=== PATIENT | female | born 1965 | race Caucasian/White ===

== ENCOUNTER 2020-04-17 16:20 | Inpatient (IN) ==
--- NOTE | 2020-04-17 17:05 | DR.NAUSEAF ---
HPI Time Seen Time Seen by Provider: 04/17/20 17:01 Primary Care Physician Primary Care Physician: SIGIFREDO ESTRADA HPI Comment HPI Comment: PATIENT IS 54YR OLD FEMELAE IN ER WITH NAUSEA, VOMITING AND ABDOMINAL PAIN SINCE FRIDAY. SEEN IN THIS ER YESTERDAY. HER SYMPTOMS ARE GETTING WORSE. NO FEVER OR DYSURIA. PATIENT HAVING SHARP CRAPING PAIN, 10.10 RADIATING TO THE BACK. NOT HOLDING DOWN FLUID OR MEDICATIONS. WEAK AND TIRED. Complaints Chief Complaint Doctors Comments: ABDOMINAL PAIN WITH NAUSEA AND VOMITING TIMES 2 DAYS. Chief Complaint:: PT C/O NAUSEA AND VOMITING AND CONSTANT ABDOMINAL PAIN SINCE FRIDAY. PT WAS SEEN IN ER LAST NIGHT. SPOKE WITH PCP TODAY WHO WANTED HER TO COME BACK FOR CT SCAN COVID-19 Coronavirus risk:travel/contact w/high risk person: No Has patient experienced Coronavirus symptoms: No Reviewed Nurses Notes Reviewed: Yes Source History Provided: Patient Mode of Arrival Mode of Arrival: Ambulatory Timing Onset of Chief Complaint: 04/17/20 Context Onset: Spontaneous Recent: None : No History of: None Quality Quality: Food Particles Associated Signs and Symptoms Abdominal Pain Quality: Cramping and Sharp Abdominal Pain Location: Diffuse Symptoms: Abdominal Pain PMH PMH Past Medical History: Yes Past Medical History: GERD and Hypertension Past Surgical History: Yes Surgical History: Cholecystectomy and Hysterectomy Family History History of Family Medical Conditions: Yes Family Medical History: Diabetes Mellitus Social History Does patient currently use any type of tobacco product: Yes Have you used tobacco products in the last 12 months: Yes Type of Tobacco Use: None Does any household member use tobacco: No Alcohol Use: None Do you use any recreational Drugs:: No Lives With: Alone Lives Where: Home Travel Risk Coronavirus risk:travel/contact w/high risk person: No Has patient experienced Coronavirus symptoms: No Infectious screening In the last 2 months have you had wt loss of >10#?: NO Have you had fever, night sweats or hemotysis?: No Have you traveled outside the country in the last 6 months?: No Isolation: Standard ROS Review of Systems Constitutional: See HPI, Weakness and Fatigue; negative Fever Eyes: No Symptoms Reported and See HPI ENTM: No Symptoms Reported and See HPI Respiratoy: No Symptoms Reported and See HPI; negative Moist Cough, Short of Breath and Wheezing Cardiovascular: No Symptoms Reported and See HPI; negative Chest Pain Gastrointestinal/Abdominal: See HPI, Abdominal Pain, Nausea and Vomiting Genitourinary: No Symptoms Reported and See HPI; negative Dysuria, Frequency and Hematuria Neurological: See HPI and Weakness; negative Headache and Dizziness Musculoskeletal: No Symptoms Reported and See HPI; negative Back Pain Integumentary: No Symptoms Reported and See HPI; negative Change in Color, Rash and Juandice Hematologic/Lymphatic: No Symptoms Reported and See HPI Endocrine: No Symptoms Reported and See HPI; negative Increased Thirst and Increased Urine Psychiatric: No Symptoms Reported and See HPI All Other Systems: Reviewed and Negative PE Vital Signs Vitals: Temperature 97.8 F Pulse Rate [Left Brachial] 78 Pulse Rate 79 Respiratory Rate 20 Blood Pressure [Left Arm] 156/91 Blood Pressure 121/78 O2 Sat by Pulse Oximetry 99 General Limitations: No Limitations General Appearance: Alert and In No Apparent Distress Head Head Exam: Normal Inspection Eyes Eye exam: Normal Appearance and PERRL; negative Scleral Icterus and Conjunctival Injection ENT ENT Exam: Normal Exam; negative Normal Oropharynx, Normal External Ear Exam and TM's Normal Bilaterally Neck Neck Exam: Normal Inspection and Trachea Midline; negative Tenderness and Lymphadenopathy Chest Chest Inspection: Normal Inspection and Symmetric Chest Wall Rise; negative Tenderness Respiratory Respiratory Exam: Normal Lung Sounds Bilat; negative Accessory Muscle Use, Chest Wall Tenderness and Respiratory Distress Respiratory Exam: Bilateral: Clear to Auscultation Cardiovascular Cardiovascular Exam: Regular Rate, Normal Rhythm and Normal Heart Sounds; negative Systolic Murmur and Diastolic Murmur Abdominal Exam Abdominal Exam: Normal Bowel Sounds, Soft and Tenderness Abdominal Tenderness: Moderate Rectal Rectal Exam: Deferred External Exam: Female: Deferred : Speculum Exam (Female): Deferred : Bimanual Exam (female): Deferred Extremities Extremities Exam: Normal Inspection Back Back Exam: Normal Inspection Neurologic Neurological Exam: Alert, Oriented X3 and CN II-XII Intact; negative Motor Sensory Deficit Psychiatric Psychiatric Exam: Normal Affect and Normal Mood Skin Skin Exam: Warm, Dry, Intact and Normal Color MDM Differential Diagnosis Differential Diagnosis: Considerations may Include:: Bowel Obstruction, Cholecystitis, Gastroenteritis, Inflammatory BD, Pancreatitis, PUD, Urinary Tract Infection and Urolithiasis COURSE Treatment Treatment: SEE ORDERS. NS 125CC/HR, ZOFRAN 4MG IV, DEMOROL 25 MG IV AND REGLAN 10 MG IV IN ER. CLONIDINE 0.2 MG PO. Reevaluation 1st: Improved (NAUSEA IMPROVED.) Consultation Consultation Comments: DISCUSSED PATIENT WITH DR. CABRERA, SHE WILL ADMIT PATIENT. Education/Counseling Education/Counseling: Patient Educated On: Diagnosis ROR Labs Reviewed Laboratory Results Reviewed?: Yes Result Diagrams: 04/22/20 05:25 04/22/20 05:25 Laboratory: WBC 5.8 X10^3/uL (3.6-10.0) 04/17/20 18:10 RBC 4.42 X10^6/uL (3.5-5.4) 04/17/20 18:10 Hgb 14.3 g/dL (12.0-16.0) 04/17/20 18:10 Hct 42.6 % (36.0-47.0) 04/17/20 18:10 MCV 96.4 fL (80.0-100.0) 04/17/20 18:10 MCH 32.3 pg (27.0-34.0) 04/17/20 18:10 MCHC 33.5 g/dL (33.0-35.0) 04/17/20 18:10 RDW 13.5 % (11.6-16.5) 04/17/20 18:10 Plt Count 236 X10^3/uL (150.0-450.0) 04/17/20 18:10 MPV 7.5 fL (7.4-11.0) 04/17/20 18:10 Neut % (Auto) 84.2 % (42.0-75.0) H 04/17/20 18:10 Lymph % (Auto) 12.3 % (21.0-51.0) L 04/17/20 18:10 [place] % (Auto) 2.6 % (0.0-13.0) 04/17/20 18:10 Eos % (Auto) 0.4 % (0.9-2.9) L 04/17/20 18:10 Baso % (Auto) 0.5 % (0.2-1.0) 04/17/20 18:10 Neut # (Auto) 4.9 x10^3/uL (2.2-4.8) H 04/17/20 18:10 Lymph # (Auto) 0.7 X10^3/uL (1.3-2.9) L 04/17/20 18:10 [place] # (Auto) 0.2 x10^3/uL (0.3-0.8) L 04/17/20 18:10 Eos # (Auto) 0.0 x10^3/uL (0.0-0.2) 04/17/20 18:10 Baso # (Auto) 0.0 X10^3/uL (0.0-0.1) 04/17/20 18:10 Absolute Nucleated RBC 0.1 /100WBC 04/17/20 18:10 Sodium 137 mmol/L (136-145) 04/17/20 18:10 Corrected Sodium TNP 04/17/20 18:10 Potassium 4.6 mmol/L (3.5-5.1) 04/17/20 18:10 Chloride 102 mmol/L (98-107) 04/17/20 18:10 Carbon Dioxide 29.4 mmol/L (21-32) 04/17/20 18:10 BUN 13 mg/dL (7-18) 04/17/20 18:10 Creatinine 0.57 mg/dL (0.55-1.02) 04/17/20 18:10 Est GFR (MDRD) Af Amer > 60 (>60) 04/17/20 18:10 Est GFR (MDRD) Non-Af > 60 (>60) 04/17/20 18:10 Glucose 87 mg/dL (65-99) 04/17/20 18:10 Calcium 8.5 mg/dL (8.5-10.1) 04/17/20 18:10 Corrected Calcium TNP 04/17/20 18:10 Total Bilirubin 0.20 mg/dL (0.2-1.0) 04/17/20 18:10 AST 51 Units/L (15-37) H 04/17/20 18:10 ALT 43 Units/L (12-78) 04/17/20 18:10 Alkaline Phosphatase 118 Units/L (46-116) H 04/17/20 18:10 Total Protein 6.8 g/dL (6.4-8.2) 04/17/20 18:10 Albumin 3.7 g/dL (3.4-5.0) 04/17/20 18:10 Globulin 3.1 g/dL (2.5-4.5) 04/17/20 18:10 Albumin/Globulin Ratio 1.2 Ratio (1.1-2.1) 04/17/20 18:10 Amylase 45 Units/L (25-115) 04/17/20 18:10 Lipase 104 Units/L (73-393) 04/17/20 18:10 XRAY XRAY Interpreted by: Radiologist and Self Opioid Opioid Risk Tool Age (Joseph box if 16-45): No History of Preadolescent Sexual Abuse: No Total: 0 Total Score Risk Category: Low Risk Copyright: Bartolo BENEDICT predicting aberrant behaviors Diagnosis Discharge Problem: Gastric outlet obstruction Abdominal pain Qualifiers: Abdominal location: generalized Qualified Code(s): R10.84 - Generalized abdominal pain Nausea & vomiting Qualifiers: Vomiting type: unspecified Vomiting Intractability: intractable Qualified Code(s): R11.2 - Nausea with vomiting, unspecified Instructions Instructions: Steps to Quit Smoking, [id number] Forms: Precautions for COVID19 Patient Portal Social Distancing
[2020-04-17] MEDS ORDERED: ZOFRAN INJ 4 MG VIAL IVP ONE ×2 (17:07→20:44)
[2020-04-17] MEDS ORDERED: ZOFRAN INJ 4 MG VIAL ONE ×2 (17:43→20:56)
--- NOTE | 2020-04-17 18:19 | CT ---
HISTORYABD PAIN, NAUSEA, PROJECTILE VOMITINGSTUDYABDOMEN/PELVIS WITH CONCOMPARISONNone availableTECHNIQUEMultiple axial images of the abdomen and pelvis were obtained from the lung bases to the pubic symphysis after the administration of IV contrast. Dose reduction techniques including Automated Exposure Control (AEC) and adjustment of mA and kV were utilized.FINDINGS[The lung bases demonstrate patchy consolidation within the dependent right lower lobe. No focal hepatic lesion is identified. Mild intrahepatic and extrahepatic bile duct dilatation. Liver morphology is normal. Previous cholecystectomy. The spleen is normal. The pancreas demonstrates mild ductal dilatation the level of the ampulla. There is subtle increased enhancement of the inferior wall of the ampulla seen on axial image 26. Adrenal glands are normal. Neither kidney demonstrates evidence of nephrolithiasis, hydronephrosis or mass. Stomach is markedly dilated with fluid. There is increased mucosal enhancement and irregular thickening of the gastric pylorus and proximal duodenum. There are mildly enlarged. Duodenal lymph nodes as well. The distal small bowel is normal. Urinary bladder is unremarkable. No pelvic or adnexal mass. The rectum and colon are unremarkable. The appendix is normal. No pelvic free fluid. Abdominal aorta is normal in caliber. Enlarged pelvic lymph node. There are borderline enlarged gastrohepatic and peripancreatic lymph nodes. Review of bone windows demonstrates no acute osseous abnormality.Impression:Marked gastric fluid distention with increased mucosal enhancement and irregularity of the gastric pylorus and duodenum with questionable area of nodular enhancement at the level of the proximal ampulla. Mildly enlarged periduodenal and gastrohepatic lymph nodes are also noted. Findings are highly suspicious for a gastric outlet obstruction in the setting of either an severe peptic ulcer disease or underlying mass within the gastric pylorus/proximal duodenum. Recommend endoscopy for further evaluation and potentially biopsy.Mild common bile duct and pancreatic ductal dilatation to the level of the ampulla, attention on endoscopy in this location is also recommended.Patchy consolidation within the dependent right lower lobe likely represents subsegmental atelectasis however clinical correlation is needed for exclusion of pneumonia or aspiration.Refer to above for additional incidental, nonacute findings.Electronically signed by: KATHARINE MARTIN (Apr 17, 2020 18:18:31)
[2020-04-17 18:21] LABS: BASOPHILS % (AUTO) 0.5 % (0.2-1.0); EOSINOPHILS % (AUTO) 0.4 % (0.9-2.9); HEMATOCRIT 42.6 % (36.0-47.0); HEMOGLOBIN 14.3 g/dL (12.0-16.0); LYMPHOCYTES # (AUTO) 0.7 X10^3/uL (1.3-2.9); LYMPHOCYTES % (AUTO) 12.3 % (21.0-51.0); MEAN CORPUSCULAR HEMOGLOBIN 32.3 pg (27.0-34.0); MEAN CORPUSCULAR HGB CONC 33.5 g/dL (33.0-35.0); MEAN CORPUSCULAR VOLUME 96.4 fL (80.0-100.0); MEAN PLATELET VOLUME 7.5 fL (7.4-11.0); MONOCYTES # (AUTO) 0.2 x10^3/uL (0.3-0.8); MONOCYTES % (AUTO) 2.6 % (0.0-13.0); NEUTROPHILS # (AUTO) 4.9 x10^3/uL (2.2-4.8); NEUTROPHILS % (AUTO) 84.2 % (42.0-75.0); PLATELET COUNT 236 X10^3/uL (150.0-450.0); RED BLOOD COUNT 4.42 X10^6/uL (3.5-5.4); RED CELL DISTRIBUTION WIDTH 13.5 % (11.6-16.5); WHITE BLOOD COUNT 5.8 X10^3/uL (3.6-10.0)
[2020-04-17 18:31] LABS: ALANINE AMINOTRANSFERASE 43 Units/L (12-78); ALBUMIN 3.7 g/dL (3.4-5.0); ALKALINE PHOSPHATASE 118 Units/L (46-116); AMYLASE 45 Units/L (25-115); ASPARTATE AMINO TRANSFERASE 51 Units/L (15-37); BLOOD UREA NITROGEN 13 mg/dL (7-18); CALCIUM 8.5 mg/dL (8.5-10.1); CARBON DIOXIDE 29.4 mmol/L (21-32); CHLORIDE 102 mmol/L (98-107); CREATININE 0.57 mg/dL (0.55-1.02); LIPASE 104 Units/L (73-393); SODIUM 137 mmol/L (136-145); TOTAL PROTEIN 6.8 g/dL (6.4-8.2); eGFR NON BLACK RACES > 60 (>60)
[2020-04-17] MEDS ORDERED: DEMEROL INJ IVP ONE (20:44)
[2020-04-17] MEDS ORDERED: NS 1000 ML 1,000 ML ONE (20:57)
[2020-04-17] MEDS ORDERED: DEMEROL INJ ONE (20:57)
[2020-04-17] MEDS ORDERED: NS 1000 ML 1,000 ML IV SCH (21:00)
[2020-04-17] MEDS ORDERED: REGLAN INJ 10 MG VIAL IVP ONE (22:23)
[2020-04-17] MEDS ORDERED: REGLAN INJ 10 MG VIAL ONE (22:39)
[2020-04-17] MEDS ORDERED: CATAPRES TAB 0.2 MG ONE (22:57)
[2020-04-17] MEDS ORDERED: CATAPRES TAB 0.2 MG PO ONE (23:00)
[2020-04-17] MEDS ORDERED: MORPHINE SULFATE INJ 2 MG INJ IVP PRN (23:44)
[2020-04-17] MEDS ORDERED: PEPCID 20 MG IV PREMIX* 20 MG/50 ML BAG IV PRN (23:44)
[2020-04-18] MEDS: NS 1000 ML 1,000 ML IV SCH ×3 (01:03→10:01)
[2020-04-18] MEDS: ZOFRAN INJ 4 MG VIAL IVP PRN ×2 (02:30→08:50)
[2020-04-18] MEDS ORDERED: PHENERGAN INJ 25 MG IM ONE (03:48)
[2020-04-18] MEDS: PHENERGAN INJ 25 MG IM PRN ×2 (03:53→09:40)
[2020-04-18 06:37] LABS: ALANINE AMINOTRANSFERASE 52 Units/L (12-78); ALBUMIN 3.4 g/dL (3.4-5.0); ALKALINE PHOSPHATASE 108 Units/L (46-116); AMYLASE 39 Units/L (25-115); ASPARTATE AMINO TRANSFERASE 53 Units/L (15-37); BLOOD UREA NITROGEN 10 mg/dL (7-18); CALCIUM 8.3 mg/dL (8.5-10.1); CARBON DIOXIDE 22.8 mmol/L (21-32); CHLORIDE 104 mmol/L (98-107); CREATININE 0.46 mg/dL (0.55-1.02); LIPASE 114 Units/L (73-393); SODIUM 139 mmol/L (136-145); TOTAL PROTEIN 6.2 g/dL (6.4-8.2); eGFR NON BLACK RACES > 60 (>60)
[2020-04-18 06:43] LABS: BASOPHILS # (AUTO) 0.1 X10^3/uL (0.0-0.1); EOSINOPHILS % (AUTO) 0.1 % (0.9-2.9); HEMATOCRIT 39.4 % (36.0-47.0); LYMPHOCYTES # (AUTO) 1.2 X10^3/uL (1.3-2.9); LYMPHOCYTES % (AUTO) 20.4 % (21.0-51.0); MEAN CORPUSCULAR HEMOGLOBIN 31.9 pg (27.0-34.0); MEAN CORPUSCULAR VOLUME 96.7 fL (80.0-100.0); MEAN PLATELET VOLUME 8.6 fL (7.4-11.0); MONOCYTES # (AUTO) 0.3 x10^3/uL (0.3-0.8); MONOCYTES % (AUTO) 5.6 % (0.0-13.0); NEUTROPHILS # (AUTO) 4.2 x10^3/uL (2.2-4.8); NEUTROPHILS % (AUTO) 72.9 % (42.0-75.0); PLATELET COUNT 223 X10^3/uL (150.0-450.0); RED BLOOD COUNT 4.07 X10^6/uL (3.5-5.4); RED CELL DISTRIBUTION WIDTH 13.9 % (11.6-16.5); WHITE BLOOD COUNT 5.8 X10^3/uL (3.6-10.0)
[2020-04-18 06:43] LABS: BILIRUBIN,URINE NEGATIVE (NEGATIVE); BLOOD/HEMOGLOBIN,URINE 4+ (NEGATIVE); GLUCOSE, URINE NEGATIVE (NEGATIVE); KETONES,URINE 4+ (NEGATIVE); LEUKOCYTE ESTERASE ,URINE NEGATIVE (NEGATIVE); NITRITES,URINE NEGATIVE (NEGATIVE); PROTEIN,URINE 1+ (NEGATIVE); UROBILINOGEN,URINE 1+ (NORMAL)
[2020-04-18 06:47] LABS: APPEARANCE,URINE HAZY (CLEAR); COLOR,URINE YELLOW (YELLOW)
[2020-04-18 06:52] LABS: AMORPHOUS SEDIMENT,UR TRACE /HPF (NEGATIVE); BACTERIA,URINE NEGATIVE /HPF (NEGATIVE); MUCUS,URINE FEW /HPF (NEGATIVE); SQUAMOUS EPITHELIAL CELL,UR RARE /HPF (NEGATIVE)
[2020-04-18] MEDS: PEPCID 20 MG IV PREMIX* 20 MG/50 ML BAG IV SCH ×2 (10:01→21:13)
[2020-04-18] MEDS: LEVAQUIN PREMIX IV 750 MG 750 MG/150 ML BAG IV SCH (10:27)
[2020-04-18] MEDS: PROTONIX INJ 40 MG VIAL IVP SCH ×2 (10:27→21:13)
--- NOTE | 2020-04-18 11:45 | DR.H&P ---
H&P - History & Physical for Day of: H&P Date: 04/17/20 - Chief Complaint Chief Complaint: ABDOMINAL PAIN, NAUSEA, VOMITING - History of Present Illness History of Present Illness: IS A 54 YEAR OLD PATIENT OF OURS. SHE PRESENTED TO THE ER WITH COMPLAINTS OF NAUSEA, VOMITING, AND PERSISTENT ABDOMINAL PAIN X 4 DAYS. SHE DENIES DIARRHEA, HEMATEMESIS, MELENA, HEMATOCHEZIA, OR FEVER. PAIN IS DIFFUSE AND IS CURRENTLY RATED 6/10. IT IS DESCRIBED DULL AND BURNING. SHE DOES ADMIT TO ASSOCIATED NAUSEA AND VOMITING. HER PMH INCLUDES: GERD, HYPERTENSION, CHOLECYSTECTOMY, AND HYSTERECTOMY. ON ARRIVAL TO THE ER, VITALS WERE 98.6-93-20-99%-123/87. LABS WERE OBTAINED. ABNORMAL LAB VALUES INCLUDE THE FOLLOWING: AST 51, ALK PHOS 118. AMYLASE AND LIPASE NORMAL. URINALYSIS REVEALED: WBC NONE SEEN, RBC 3-5, OCCULT BLOOD 4+, KETONES 4+, LEUKOCYTES NEGATIVE, BACTERIA NEGATIVE. AN ABDOMEN/PELVIS CT WITH CONTRAST WAS OBTAINED AND REVEALED: Marked gastric fluid distention with increased mucosal enhancement and irregularity of the gastric pylorus and duodenum with questionable area of nodular enhancement at the level of the proximal ampulla. Mildly enlarged periduodenal and gastrohepatic lymph nodes are also noted. Findings are highly suspicious for a gastric outlet obstruction in the setting of either an severe peptic ulcer disease or underlying mass within the gastric pylorus/proximal duodenum. Recommend endoscopy for further evaluation and potentially biopsy. Mild common bile duct and pancreatic ductal dilatation to the level of the ampulla, attention on endoscopy in this location is also recommended. Patchy consolidation within the dependent right lower lobe likely represents subsegmental atelectasis however clinical correlation is needed for exclusion of pneumonia or aspiration. WE ADMITTED PATIENT FOR FURTHER EVALTU ATION AND TREATMENT OF ABDOMINAL PAIN, NAUEA AND VOMTING, AND GASTRIC OUTLET OBSTRUCTION VS MASS. SHE WAS STARTED ON NS AT 100 ML/HR, PROTONIX 40M IV BID, PEPCID 20MG IV Q12H, ZOFRAN 4MG IV Q6H PRN, PHENERGAN 25MG IM Q6H PRN, AND LEVAQUIN 750 MG IV DAILY DUE TO INFILTRATES. THROUGHOUT THE NIGHT, HER BLOOD PRESSURE DID INCREASE TO 181/99. SHE WAS CLONIDINE 0.2MG PO X 1. BLOOD PRESSURE DECREASED TO 153/75. PATIENT WAS HELD NPO AND WE WILL CONSULT WITH , GENERAL SURGERY THIS MORNING. OTHERWISE, WE PLAN TO FOLLOW UP WITH AM LABS AND CONTINUE TO MONITOR. - Past Medical History Past Medical History: Hypertension, GERD - Past Surgical History Surgical History: Cholecystectomy, Hysterectomy - Family History Family Medical History: Diabetes Mellitus - Social History Does patient currently use any type of tobacco product: Yes Have you used tobacco products in the last 12 months: Yes Type of Tobacco Use: Cigarettes Does any household member use tobacco: No Alcohol Use: None Drug Use: None - Medications Home Medications: No Known Drug Allergies Allergy (Verified 04/16/20 16:29) CONTINUE taking the following medications amlodipine 5 mg PO DAILY 04/17/20 [History] buprenorphine-naloxone 1 film SUBLINGUAL DAILY 04/17/20 [History] omeprazole 40 mg PO DAILY 04/17/20 [History] phentermine 37.5 mg PO DAILY 04/17/20 [History] - Review of Systems Constitutional: Weakness Eyes: No Symptoms Reported ENT: No Symptoms Reported Respiratory: No Symptoms Reported Cardiovascular: No Symptoms Reported Gastrointestinal: See HPI, Nausea, Vomiting, Abdominal Pain Genitourinary: No Symptoms Reported Musculoskeletal: No Symptoms Reported Skin: No Symptoms Reported Neurological: Weakness - Physical Exam Vital Signs: Temperature 97.8 F Pulse Rate [Left Brachial] 62 Pulse Rate 79 Respiratory Rate 18 Blood Pressure [Right Arm] 154/82 Blood Pressure [Left Arm] 160/88 Blood Pressure 121/78 O2 Sat by Pulse Oximetry 98 Oriented: Normal Eyes: Normal Ear: Normal Nose: Normal Throat: Normal Respiratory: Diminished Throughout Cardiovascular: Normal : Normal Auscultation: Bowel Sounds: Normal Palpation: Normal Tenderness: Diffuse, Moderate Skin: Normal Musculoskeletal: Normal Psychiatric: Normal Mood Description: Calm Affect: Normal Speech Pattern: Clear - Assessment/Plan (1) Abdominal pain Qualifiers: Abdominal location: generalized Qualified Code(s): R10.84 - Generalized abdominal pain Status: Acute Plan: ADMIT, NS AT 100 ML/HR, PROTONIX 40M IV BID, PEPCID 20MG IV Q12H, ZOFRAN 4MG IV Q6H PRN, PHENERGAN 25MG IM Q6H PRN, AND LEVAQUIN 750 MG IV DAILY DUE TO INFILTRATES. SURGICAL CONSULT (2) Gastric outlet obstruction Status: Acute (3) Nausea & vomiting Qualifiers: Vomiting type: unspecified Vomiting Intractability: intractable Qualified Code(s): R11.2 - Nausea with vomiting, unspecified Status: Acute (4) Right lower lobe pulmonary infiltrate Status: Acute - Allergies Allergies/Adverse Reactions: Allergies Allergy/AdvReac Type Severity Reaction Status Date / Time No Known Drug Allergies Allergy Verified 04/16/20 16:29
[2020-04-18 14:03] VITALS: BMI 23.3
[2020-04-18] MEDS ORDERED: DIPRIVAN VIAL 20 ML ONE ×2 (14:42→15:20)
[2020-04-18] MEDS: D5 1/2 NS 1000 ML 1,000 ML IV SCH ×2 (16:00→23:26)
[2020-04-18] MEDS: LOPRESSOR INJ 5 MG AMP IVP PRN (18:44)
[2020-04-18] MEDS: ATIVAN INJ 2 MG VIAL IVP PRN (19:03)
[2020-04-19] MEDS: ATIVAN INJ 2 MG VIAL IVP PRN ×2 (01:49→19:00)
[2020-04-19] MEDS: D5 1/2 NS 1000 ML 1,000 ML IV SCH ×4 (01:59→19:00)
[2020-04-19 06:12] LABS: ALANINE AMINOTRANSFERASE 47 Units/L (12-78); ALBUMIN 3.1 g/dL (3.4-5.0); ALKALINE PHOSPHATASE 106 Units/L (46-116); ASPARTATE AMINO TRANSFERASE 40 Units/L (15-37); BLOOD UREA NITROGEN 4 mg/dL (7-18); CALCIUM 8.3 mg/dL (8.5-10.1); CARBON DIOXIDE 23.9 mmol/L (21-32); CHLORIDE 103 mmol/L (98-107); COR NA(FOR HYPERGLY) 138 mmol/L (136-145); CREATININE 0.53 mg/dL (0.55-1.02); SODIUM 137 mmol/L (136-145); TOTAL PROTEIN 6.2 g/dL (6.4-8.2); eGFR NON BLACK RACES > 60 (>60)
[2020-04-19 06:13] LABS: BASOPHILS # (AUTO) 0.1 X10^3/uL (0.0-0.1); BASOPHILS % (AUTO) 0.7 % (0.2-1.0); EOSINOPHILS % (AUTO) 0.4 % (0.9-2.9); HEMATOCRIT 40.9 % (36.0-47.0); HEMOGLOBIN 13.9 g/dL (12.0-16.0); LYMPHOCYTES # (AUTO) 1.6 X10^3/uL (1.3-2.9); LYMPHOCYTES % (AUTO) 22.4 % (21.0-51.0); MEAN CORPUSCULAR HEMOGLOBIN 32.6 pg (27.0-34.0); MEAN CORPUSCULAR VOLUME 95.9 fL (80.0-100.0); MONOCYTES # (AUTO) 0.5 x10^3/uL (0.3-0.8); MONOCYTES % (AUTO) 7.2 % (0.0-13.0); NEUTROPHILS % (AUTO) 69.3 % (42.0-75.0); PLATELET COUNT 186 X10^3/uL (150.0-450.0); RED BLOOD COUNT 4.26 X10^6/uL (3.5-5.4); RED CELL DISTRIBUTION WIDTH 13.7 % (11.6-16.5); WHITE BLOOD COUNT 7.2 X10^3/uL (3.6-10.0)
[2020-04-19] MEDS: LEVAQUIN PREMIX IV 750 MG 750 MG/150 ML BAG IV SCH (09:00)
[2020-04-19] MEDS: PEPCID 20 MG IV PREMIX* 20 MG/50 ML BAG IV SCH ×2 (09:00→21:11)
[2020-04-19] MEDS: PROTONIX INJ 40 MG VIAL IVP SCH ×2 (09:00→21:12)
[2020-04-19] MEDS ORDERED: K-DUR TAB 20 MEQ PO PRN (10:27)
--- NOTE | 2020-04-19 10:44 | DR.PROGNOT ---
Hospital Progress Notes - Progress Note for Day of: Progress Note Date: 04/19/20 - Chief Complaint Chief Complaint: less abdominal pain . moderate drainage in NGT . CBC is normal . lytes normal .. Mg+ 1.6 Albumin 3.1..Hgb 13.9. afebrile . - Past Medical Family Social History Past Med/Fam/Surg Hx: No changes since H&P Allergies: Allergies No Known Drug Allergies Allergy (Verified 04/16/20 16:29) - Review Of Systems ROS: No change since H&P - Vital Signs Vital Signs: Temperature 97.8 F Pulse Rate [Left Brachial] 79 Pulse Rate 79 Respiratory Rate 20 Blood Pressure [Right Arm] 153/88 Blood Pressure [Left Arm] 160/88 Blood Pressure 170/93 O2 Sat by Pulse Oximetry 97 - Physical Exam Oriented: Normal Eyes: Normal Ear: Normal Nose: Normal Throat: Normal Cardiovascular: Normal : Normal GI:Auscultation: Decreased GI:Palpation: Normal GI: Tenderness: Diffuse, Moderate Skin: Normal Musculoskeletal: Normal Psychiatric: Normal Mood Description: Calm Affect: Normal Speech Pattern: Clear, Appropriate - Laboratory and Diagnostics Result Diagrams: 04/19/20 05:20 04/19/20 05:20 Labs: Laboratory WBC 7.2 X10^3/uL (3.6-10.0) 04/19/20 05:20 RBC 4.26 X10^6/uL (3.5-5.4) 04/19/20 05:20 Hgb 13.9 g/dL (12.0-16.0) 04/19/20 05:20 Hct 40.9 % (36.0-47.0) 04/19/20 05:20 MCV 95.9 fL (80.0-100.0) 04/19/20 05:20 MCH 32.6 pg (27.0-34.0) 04/19/20 05:20 MCHC 34.0 g/dL (33.0-35.0) 04/19/20 05:20 RDW 13.7 % (11.6-16.5) 04/19/20 05:20 Plt Count 186 X10^3/uL (150.0-450.0) 04/19/20 05:20 MPV 8.0 fL (7.4-11.0) 04/19/20 05:20 Neut % (Auto) 69.3 % (42.0-75.0) 04/19/20 05:20 Lymph % (Auto) 22.4 % (21.0-51.0) 04/19/20 05:20 [place] % (Auto) 7.2 % (0.0-13.0) 04/19/20 05:20 Eos % (Auto) 0.4 % (0.9-2.9) L 04/19/20 05:20 Baso % (Auto) 0.7 % (0.2-1.0) 04/19/20 05:20 Neut # (Auto) 5.0 x10^3/uL (2.2-4.8) H 04/19/20 05:20 Lymph # (Auto) 1.6 X10^3/uL (1.3-2.9) 04/19/20 05:20 [place] # (Auto) 0.5 x10^3/uL (0.3-0.8) 04/19/20 05:20 Eos # (Auto) 0.0 x10^3/uL (0.0-0.2) 04/19/20 05:20 Baso # (Auto) 0.1 X10^3/uL (0.0-0.1) 04/19/20 05:20 Absolute Nucleated RBC 0.0 /100WBC 04/19/20 05:20 Sodium 137 mmol/L (136-145) 04/19/20 05:20 Corrected Sodium 138 mmol/L (136-145) 04/19/20 05:20 Potassium 3.5 mmol/L (3.5-5.1) 04/19/20 05:20 Chloride 103 mmol/L (98-107) 04/19/20 05:20 Carbon Dioxide 23.9 mmol/L (21-32) 04/19/20 05:20 BUN 4 mg/dL (7-18) L 04/19/20 05:20 Creatinine 0.53 mg/dL (0.55-1.02) L 04/19/20 05:20 Est GFR (MDRD) Af Amer > 60 (>60) 04/19/20 05:20 Est GFR (MDRD) Non-Af > 60 (>60) 04/19/20 05:20 Glucose 126 mg/dL (65-99) H 04/19/20 05:20 Calcium 8.3 mg/dL (8.5-10.1) L 04/19/20 05:20 Corrected Calcium 9.0 mg/dL (8.5-10.1) 04/19/20 05:20 Magnesium 1.6 mg/dL (1.7-2.9) L 04/19/20 05:20 Ferritin 42 ng/mL (8-252) 04/18/20 05:45 Total Bilirubin 0.20 mg/dL (0.2-1.0) 04/19/20 05:20 AST 40 Units/L (15-37) H 04/19/20 05:20 ALT 47 Units/L (12-78) 04/19/20 05:20 Alkaline Phosphatase 106 Units/L (46-116) 04/19/20 05:20 C-Reactive Protein 2.10 mg/L (0-3.0) 04/18/20 05:45 Total Protein 6.2 g/dL (6.4-8.2) L 04/19/20 05:20 Albumin 3.1 g/dL (3.4-5.0) L 04/19/20 05:20 Globulin 3.1 g/dL (2.5-4.5) 04/19/20 05:20 Albumin/Globulin Ratio 1.0 Ratio (1.1-2.1) L 04/19/20 05:20 Amylase 39 Units/L (25-115) 04/18/20 05:45 Lipase 114 Units/L (73-393) 04/18/20 05:45 Specimen Type Clean catch urine 04/18/20 05:50 Urine Color Yellow (YELLOW) 04/18/20 05:50 Urine Appearance Hazy (CLEAR) 04/18/20 05:50 Urine pH 6.0 (5.0 - 8.0) 04/18/20 05:50 Ur Specific [place] 1.020 (1.000-1.030) 04/18/20 05:50 Urine Protein 1+ (NEGATIVE) 04/18/20 05:50 Urine Glucose (UA) Negative (NEGATIVE) 04/18/20 05:50 Urine Ketones 4+ (NEGATIVE) 04/18/20 05:50 Urine Occult Blood 4+ (NEGATIVE) 04/18/20 05:50 Urine Nitrite Negative (NEGATIVE) 04/18/20 05:50 Urine Bilirubin Negative (NEGATIVE) 04/18/20 05:50 Urine Urobilinogen 1+ (NORMAL) 04/18/20 05:50 Ur Leukocyte Esterase Negative (NEGATIVE) 04/18/20 05:50 Urine RBC 3-5 /HPF (0-3) A 04/18/20 05:50 Urine WBC None seen /HPF (0-5) 04/18/20 05:50 Ur Squamous Epith Cells Rare /HPF (NEGATIVE) 04/18/20 05:50 Amorphous Sediment Trace /HPF (NEGATIVE) 04/18/20 05:50 Urine Bacteria Negative /HPF (NEGATIVE) 04/18/20 05:50 Urine Mucus Few /HPF (NEGATIVE) 04/18/20 05:50 Ur Culture Indicated? No/not indicated 04/18/20 05:50 Tissue Pathology To follow 04/18/20 15:29 - Assessment and Plan 1: gastric outlet obstruction . multiple distal gastric ulcers with scaring . no bleeding . to keep NGT , IV Protonix and hydration . if no improvement of the obstruction then will need surgery . D/W Pt and her in details .. - Problem Patient Problems: Patient Problems Abdominal pain (Acute) R10.9 Nausea & vomiting (Acute) R11.2 Gastric outlet obstruction (Acute) K31.1 Right lower lobe pulmonary infiltrate (Acute) R91.8
[2020-04-19] MEDS: DIFLUCAN 200 MG IV PREMIX* 200 MG/100 ML BAG IV SCH (10:50)
[2020-04-19] MEDS: LOPRESSOR INJ 5 MG AMP IVP PRN (13:57)
[2020-04-19] MEDS: ZOFRAN INJ 4 MG VIAL IVP PRN ×2 (13:58→20:30)
[2020-04-19] MEDS: MAGNESIUM SULFATE 1 GRAM/100 mL PREMIX 1 GM/100 ML BAG IV PRN ×2 (13:58→15:00)
--- NOTE | 2020-04-19 22:20 | PCM.PROG ---
Progress Note - Progress Note for Day of Date of Exam: 04/19/20 - Subjective Subjective: IS BEING TREATED FOR ABDOMINAL PAIN, NAUSEA AND VOMITING, AND A GASTRIC OUTLET OBSTRUCTION. PERFORMED AN EGD YESTERDAY WHICH REVEALED THE GASTRIC OUTLET OBSTRUCTION SECONDARY TO SEVERAL PREPYLORIC ULCERS. A LARGE AMOUNT OF GASTRIC SECRETION WAS SUCTIONED OUT. AN NG TUBE WAS PLACE. HE BELIEVES THAT SHE WILL LIKELY REQUIRE A PARTIAL GASTRECTOMY OR GASTROENTEROSTOMY IN THE FUTURE. TODAY, SHE IS ALERT AND ORIENTED ON MORNING ROUNDS. SHE CONTINUES WITH ABDOMINAL PAIN AND NAUSEA, BUT DOES REPORT SLIGHT IMPROVEMENT IN SYMPTOMS. SHE IS NOTED TO HAVE AN NG TUBE TO LOW INTERMITTENT SUCTION TODAY. HER VITALS THIS MORNING ARE: 97.8-79-20-97%-153/88. LABS WERE OBTAINED. ABNORMAL LAB VALUES INCLUDE THE FOLLOWING: BUN 4, CREATININE 0.53, GLUCOSE 126, CALCIUM 8.3, MAGNESIUM 1.6, AST 40, TOTAL PROTEIN 6.2, ALBUMIN 3.1. SHE IS CURRENTLY RECEIVING NS AT 100 ML/HR, PROTONIX 40M IV BID, PEPCID 20MG IV Q12H, ZOFRAN 4MG IV Q6H PRN, PHENERGAN 25MG IM Q6H PRN, LOPRESSOR 5MG IV Q12H PRN, ATIVAN 1MG IV Q6H PRN, AND LEVAQUIN 750 MG IV DAILY. TODAY, WE WILL ADD DIFLUCAN 200MG IV DAILY. OTHERWISE, WE WILL CONTINUE WITH CURRENT PLAN OF CARE. WE WILL FOLLOW UP WITH AM LABS AND CONTINUE TO MONITOR. - Past Medical Family Social History Past Med/Fam/Surg Hx: No changes since H&P Allergies: Allergies No Known Drug Allergies Allergy (Verified 04/16/20 16:29) - Review of Systems ROS: No change since H&P - Vital Signs and I&O's Vital Signs: Temperature 98.4 F Pulse Rate [Left Brachial] 82 Pulse Rate 79 Respiratory Rate 20 Blood Pressure [Right Arm] 164/85 Blood Pressure [Left Arm] 160/88 Blood Pressure 170/91 O2 Sat by Pulse Oximetry 97 Intake and Output: Intake & Output 04/17/20 04/18/20 04/19/20 04/20/20 11:59 11:59 11:59 11:59 Intake Total 0 / 0 4003 / 4003 1400 / 1400 Output Total 820 / 820 Balance 0 / 0 3183 / 3183 1390 / 1390 - Physical Exam Oriented: Normal Eyes: Normal Ear: Normal Nose: Normal, Other (NG TUBE TO LOW INTERMITTENT SUCTION ) Throat: Normal Respiratory: Generalized, Diminished Cardiovascular: Normal : Normal Auscultation: Bowel Sounds: Decreased Palpation: Normal Tenderness: Diffuse, Moderate Skin: Normal Musculoskeletal: Normal Psychiatric: Normal Mood Description: Calm Affect: Normal Speech Pattern: Clear, Appropriate - Laboratory and Diagnostics Result Diagrams: 04/19/20 05:20 04/19/20 05:20 Labs: Laboratory WBC 7.2 X10^3/uL (3.6-10.0) 04/19/20 05:20 RBC 4.26 X10^6/uL (3.5-5.4) 04/19/20 05:20 Hgb 13.9 g/dL (12.0-16.0) 04/19/20 05:20 Hct 40.9 % (36.0-47.0) 04/19/20 05:20 MCV 95.9 fL (80.0-100.0) 04/19/20 05:20 MCH 32.6 pg (27.0-34.0) 04/19/20 05:20 MCHC 34.0 g/dL (33.0-35.0) 04/19/20 05:20 RDW 13.7 % (11.6-16.5) 04/19/20 05:20 Plt Count 186 X10^3/uL (150.0-450.0) 04/19/20 05:20 MPV 8.0 fL (7.4-11.0) 04/19/20 05:20 Neut % (Auto) 69.3 % (42.0-75.0) 04/19/20 05:20 Lymph % (Auto) 22.4 % (21.0-51.0) 04/19/20 05:20 [place] % (Auto) 7.2 % (0.0-13.0) 04/19/20 05:20 Eos % (Auto) 0.4 % (0.9-2.9) L 04/19/20 05:20 Baso % (Auto) 0.7 % (0.2-1.0) 04/19/20 05:20 Neut # (Auto) 5.0 x10^3/uL (2.2-4.8) H 04/19/20 05:20 Lymph # (Auto) 1.6 X10^3/uL (1.3-2.9) 04/19/20 05:20 [place] # (Auto) 0.5 x10^3/uL (0.3-0.8) 04/19/20 05:20 Eos # (Auto) 0.0 x10^3/uL (0.0-0.2) 04/19/20 05:20 Baso # (Auto) 0.1 X10^3/uL (0.0-0.1) 04/19/20 05:20 Absolute Nucleated RBC 0.0 /100WBC 04/19/20 05:20 Sodium 137 mmol/L (136-145) 04/19/20 05:20 Corrected Sodium 138 mmol/L (136-145) 04/19/20 05:20 Potassium 3.5 mmol/L (3.5-5.1) 04/19/20 05:20 Chloride 103 mmol/L (98-107) 04/19/20 05:20 Carbon Dioxide 23.9 mmol/L (21-32) 04/19/20 05:20 BUN 4 mg/dL (7-18) L 04/19/20 05:20 Creatinine 0.53 mg/dL (0.55-1.02) L 04/19/20 05:20 Est GFR (MDRD) Af Amer > 60 (>60) 04/19/20 05:20 Est GFR (MDRD) Non-Af > 60 (>60) 04/19/20 05:20 Glucose 126 mg/dL (65-99) H 04/19/20 05:20 Calcium 8.3 mg/dL (8.5-10.1) L 04/19/20 05:20 Corrected Calcium 9.0 mg/dL (8.5-10.1) 04/19/20 05:20 Magnesium 1.6 mg/dL (1.7-2.9) L 04/19/20 05:20 Ferritin 42 ng/mL (8-252) 04/18/20 05:45 Total Bilirubin 0.20 mg/dL (0.2-1.0) 04/19/20 05:20 AST 40 Units/L (15-37) H 04/19/20 05:20 ALT 47 Units/L (12-78) 04/19/20 05:20 Alkaline Phosphatase 106 Units/L (46-116) 04/19/20 05:20 C-Reactive Protein 2.10 mg/L (0-3.0) 04/18/20 05:45 Total Protein 6.2 g/dL (6.4-8.2) L 04/19/20 05:20 Albumin 3.1 g/dL (3.4-5.0) L 04/19/20 05:20 Globulin 3.1 g/dL (2.5-4.5) 04/19/20 05:20 Albumin/Globulin Ratio 1.0 Ratio (1.1-2.1) L 04/19/20 05:20 Amylase 39 Units/L (25-115) 04/18/20 05:45 Lipase 114 Units/L (73-393) 04/18/20 05:45 Specimen Type Clean catch urine 04/18/20 05:50 Urine Color Yellow (YELLOW) 04/18/20 05:50 Urine Appearance Hazy (CLEAR) 04/18/20 05:50 Urine pH 6.0 (5.0 - 8.0) 04/18/20 05:50 Ur Specific [place] 1.020 (1.000-1.030) 04/18/20 05:50 Urine Protein 1+ (NEGATIVE) 04/18/20 05:50 Urine Glucose (UA) Negative (NEGATIVE) 04/18/20 05:50 Urine Ketones 4+ (NEGATIVE) 04/18/20 05:50 Urine Occult Blood 4+ (NEGATIVE) 04/18/20 05:50 Urine Nitrite Negative (NEGATIVE) 04/18/20 05:50 Urine Bilirubin Negative (NEGATIVE) 04/18/20 05:50 Urine Urobilinogen 1+ (NORMAL) 04/18/20 05:50 Ur Leukocyte Esterase Negative (NEGATIVE) 04/18/20 05:50 Urine RBC 3-5 /HPF (0-3) A 04/18/20 05:50 Urine WBC None seen /HPF (0-5) 04/18/20 05:50 Ur Squamous Epith Cells Rare /HPF (NEGATIVE) 04/18/20 05:50 Amorphous Sediment Trace /HPF (NEGATIVE) 04/18/20 05:50 Urine Bacteria Negative /HPF (NEGATIVE) 04/18/20 05:50 Urine Mucus Few /HPF (NEGATIVE) 04/18/20 05:50 Ur Culture Indicated? No/not indicated 04/18/20 05:50 Tissue Pathology To follow 04/18/20 15:29 - Plan (1) Abdominal pain Status: Acute Qualifiers: Abdominal location: generalized Qualified Code(s): R10.84 - Generalized abdominal pain Plan: NS AT 100 ML/HR, PROTONIX 40M IV BID, PEPCID 20MG IV Q12H, ZOFRAN 4MG IV Q6H PRN, PHENERGAN 25MG IM Q6H PRN, DIFLUCAN 200MG IV DAILY, AND LEVAQUIN 750 MG IV DAILY DUE TO INFILTRATES. (2) Gastric outlet obstruction Status: Acute (3) Prepyloric ulcer Status: Acute Qualifiers: Gastric ulcer chronicity: acute Qualified Code(s): K25.3 - Acute gastric ulcer without hemorrhage or perforation (4) Nausea & vomiting Status: Acute Qualifiers: Vomiting type: unspecified Vomiting Intractability: intractable Qualified Code(s): R11.2 - Nausea with vomiting, unspecified (5) Right lower lobe pulmonary infiltrate Status: Acute
[2020-04-19] MEDS ORDERED: OFIRMEV IV 1000 MG VIAL 500 MG/50 ML VIAL IV PRN (22:35)
[2020-04-19] MEDS ORDERED: OFIRMEV IV 1000 MG VIAL 1,000 MG/100 ML VIAL IV ONE (22:37)
[2020-04-20] MEDS: D5 1/2 NS 1000 ML 1,000 ML IV SCH (00:14)
[2020-04-20 06:12] LABS: BASOPHILS % (AUTO) 0.5 % (0.2-1.0); HEMATOCRIT 40.3 % (36.0-47.0); HEMOGLOBIN 13.8 g/dL (12.0-16.0); LYMPHOCYTES # (AUTO) 1.5 X10^3/uL (1.3-2.9); LYMPHOCYTES % (AUTO) 31.9 % (21.0-51.0); MEAN CORPUSCULAR HEMOGLOBIN 32.4 pg (27.0-34.0); MEAN CORPUSCULAR HGB CONC 34.2 g/dL (33.0-35.0); MEAN CORPUSCULAR VOLUME 94.6 fL (80.0-100.0); MEAN PLATELET VOLUME 7.7 fL (7.4-11.0); MONOCYTES # (AUTO) 0.4 x10^3/uL (0.3-0.8); MONOCYTES % (AUTO) 8.3 % (0.0-13.0); NEUTROPHILS # (AUTO) 2.7 x10^3/uL (2.2-4.8); NEUTROPHILS % (AUTO) 58.3 % (42.0-75.0); PLATELET COUNT 214 X10^3/uL (150.0-450.0); RED BLOOD COUNT 4.26 X10^6/uL (3.5-5.4); RED CELL DISTRIBUTION WIDTH 13.5 % (11.6-16.5); WHITE BLOOD COUNT 4.7 X10^3/uL (3.6-10.0)
[2020-04-20 06:15] LABS: ALANINE AMINOTRANSFERASE 38 Units/L (12-78); ALKALINE PHOSPHATASE 105 Units/L (46-116); ASPARTATE AMINO TRANSFERASE 25 Units/L (15-37); BLOOD UREA NITROGEN 2 mg/dL (7-18); CALCIUM 8.1 mg/dL (8.5-10.1); CARBON DIOXIDE 24.5 mmol/L (21-32); CHLORIDE 104 mmol/L (98-107); COR CA(FOR HYPOALB) 8.9 mg/dL (8.5-10.1); COR NA(FOR HYPERGLY) 138 mmol/L (136-145); CREATININE 0.55 mg/dL (0.55-1.02); MAGNESIUM 1.9 mg/dL (1.7-2.9); SODIUM 138 mmol/L (136-145); eGFR NON BLACK RACES > 60 (>60)
[2020-04-20] MEDS: ATIVAN INJ 2 MG VIAL IVP PRN ×2 (06:15→21:15)
[2020-04-20] MEDS ORDERED: D5 1/2 NS + KCL 20 MEQ/L 1,000 ML IV ONE (06:30)
[2020-04-20] MEDS: D5 1/2 NS + KCL 20 MEQ/L 1,000 ML IV SCH ×2 (06:34→17:25)
[2020-04-20] MEDS: K-RIDER 10 MEQ/NS 100 ML 10 MEQ/100 ML BAG IV PRN (06:34)
[2020-04-20] MEDS: DIFLUCAN 200 MG IV PREMIX* 200 MG/100 ML BAG IV SCH (10:11)
[2020-04-20] MEDS: PROTONIX INJ 40 MG VIAL IVP SCH ×2 (10:12→21:15)
[2020-04-20] MEDS: PEPCID 20 MG IV PREMIX* 20 MG/50 ML BAG IV SCH ×2 (10:12→21:15)
[2020-04-20] MEDS: LEVAQUIN PREMIX IV 750 MG 750 MG/150 ML BAG IV SCH (10:12)
[2020-04-20] MEDS: LOPRESSOR INJ 5 MG AMP IVP PRN (10:13)
--- NOTE | 2020-04-20 10:17 | DR.PROGNOT ---
Hospital Progress Notes - Progress Note for Day of: Progress Note Date: 04/20/20 - Chief Complaint Chief Complaint: mild to moderate abdominal pain . no BM yet . moderate drainage in NGT . Bile in the drainage now . CBC is normal . K 2.7. afebrile . - Past Medical Family Social History Past Med/Fam/Surg Hx: No changes since H&P Allergies: Allergies No Known Drug Allergies Allergy (Verified 04/16/20 16:29) - Review Of Systems ROS: No change since H&P - Vital Signs Vital Signs: Temperature 97.7 F Pulse Rate [Left Brachial] 72 Pulse Rate 79 Respiratory Rate 20 Blood Pressure [Right Arm] 171/92 Blood Pressure [Left Arm] 160/88 Blood Pressure 170/91 O2 Sat by Pulse Oximetry 100 - Physical Exam Oriented: Normal Eyes: Normal Ear: Normal Nose: Normal, Other (NG TUBE TO LOW INTERMITTENT SUCTION ) Throat: Normal Respiratory: Generalized, Diminished Cardiovascular: Normal : Normal GI:Auscultation: Decreased GI:Palpation: Normal GI: Tenderness: Epigastric (soft ,flat abdomen with epigastric tenderness .BS+), Moderate Skin: Normal Musculoskeletal: Normal Psychiatric: Normal Mood Description: Calm Affect: Normal Speech Pattern: Clear - Laboratory and Diagnostics Result Diagrams: 04/20/20 05:15 04/20/20 05:15 Labs: Laboratory WBC 4.7 X10^3/uL (3.6-10.0) 04/20/20 05:15 RBC 4.26 X10^6/uL (3.5-5.4) 04/20/20 05:15 Hgb 13.8 g/dL (12.0-16.0) 04/20/20 05:15 Hct 40.3 % (36.0-47.0) 04/20/20 05:15 MCV 94.6 fL (80.0-100.0) 04/20/20 05:15 MCH 32.4 pg (27.0-34.0) 04/20/20 05:15 MCHC 34.2 g/dL (33.0-35.0) 04/20/20 05:15 RDW 13.5 % (11.6-16.5) 04/20/20 05:15 Plt Count 214 X10^3/uL (150.0-450.0) 04/20/20 05:15 MPV 7.7 fL (7.4-11.0) 04/20/20 05:15 Neut % (Auto) 58.3 % (42.0-75.0) 04/20/20 05:15 Lymph % (Auto) 31.9 % (21.0-51.0) 04/20/20 05:15 [place] % (Auto) 8.3 % (0.0-13.0) 04/20/20 05:15 Eos % (Auto) 1.0 % (0.9-2.9) 04/20/20 05:15 Baso % (Auto) 0.5 % (0.2-1.0) 04/20/20 05:15 Neut # (Auto) 2.7 x10^3/uL (2.2-4.8) 04/20/20 05:15 Lymph # (Auto) 1.5 X10^3/uL (1.3-2.9) 04/20/20 05:15 [place] # (Auto) 0.4 x10^3/uL (0.3-0.8) 04/20/20 05:15 Eos # (Auto) 0.0 x10^3/uL (0.0-0.2) 04/20/20 05:15 Baso # (Auto) 0.0 X10^3/uL (0.0-0.1) 04/20/20 05:15 Absolute Nucleated RBC 0.1 /100WBC 04/20/20 05:15 Sodium 138 mmol/L (136-145) 04/20/20 05:15 Corrected Sodium 138 mmol/L (136-145) 04/20/20 05:15 Potassium 2.7 mmol/L (3.5-5.1) L* 04/20/20 05:15 Chloride 104 mmol/L (98-107) 04/20/20 05:15 Carbon Dioxide 24.5 mmol/L (21-32) 04/20/20 05:15 BUN 2 mg/dL (7-18) L 04/20/20 05:15 Creatinine 0.55 mg/dL (0.55-1.02) 04/20/20 05:15 Est GFR (MDRD) Af Amer > 60 (>60) 04/20/20 05:15 Est GFR (MDRD) Non-Af > 60 (>60) 04/20/20 05:15 Glucose 115 mg/dL (65-99) H 04/20/20 05:15 Calcium 8.1 mg/dL (8.5-10.1) L 04/20/20 05:15 Corrected Calcium 8.9 mg/dL (8.5-10.1) 04/20/20 05:15 Magnesium 1.9 mg/dL (1.7-2.9) 04/20/20 05:15 Ferritin 42 ng/mL (8-252) 04/18/20 05:45 Total Bilirubin 0.30 mg/dL (0.2-1.0) 04/20/20 05:15 AST 25 Units/L (15-37) 04/20/20 05:15 ALT 38 Units/L (12-78) 04/20/20 05:15 Alkaline Phosphatase 105 Units/L (46-116) 04/20/20 05:15 C-Reactive Protein 2.10 mg/L (0-3.0) 04/18/20 05:45 Total Protein 6.0 g/dL (6.4-8.2) L 04/20/20 05:15 Albumin 3.0 g/dL (3.4-5.0) L 04/20/20 05:15 Globulin 3.0 g/dL (2.5-4.5) 04/20/20 05:15 Albumin/Globulin Ratio 1.0 Ratio (1.1-2.1) L 04/20/20 05:15 Amylase 39 Units/L (25-115) 04/18/20 05:45 Lipase 114 Units/L (73-393) 04/18/20 05:45 Specimen Type Clean catch urine 04/18/20 05:50 Urine Color Yellow (YELLOW) 04/18/20 05:50 Urine Appearance Hazy (CLEAR) 04/18/20 05:50 Urine pH 6.0 (5.0 - 8.0) 04/18/20 05:50 Ur Specific [place] 1.020 (1.000-1.030) 04/18/20 05:50 Urine Protein 1+ (NEGATIVE) 04/18/20 05:50 Urine Glucose (UA) Negative (NEGATIVE) 04/18/20 05:50 Urine Ketones 4+ (NEGATIVE) 04/18/20 05:50 Urine Occult Blood 4+ (NEGATIVE) 04/18/20 05:50 Urine Nitrite Negative (NEGATIVE) 04/18/20 05:50 Urine Bilirubin Negative (NEGATIVE) 04/18/20 05:50 Urine Urobilinogen 1+ (NORMAL) 04/18/20 05:50 Ur Leukocyte Esterase Negative (NEGATIVE) 04/18/20 05:50 Urine RBC 3-5 /HPF (0-3) A 04/18/20 05:50 Urine WBC None seen /HPF (0-5) 04/18/20 05:50 Ur Squamous Epith Cells Rare /HPF (NEGATIVE) 04/18/20 05:50 Amorphous Sediment Trace /HPF (NEGATIVE) 04/18/20 05:50 Urine Bacteria Negative /HPF (NEGATIVE) 04/18/20 05:50 Urine Mucus Few /HPF (NEGATIVE) 04/18/20 05:50 Ur Culture Indicated? No/not indicated 04/18/20 05:50 Tissue Pathology To follow 04/18/20 15:29 - Assessment and Plan 1: gastric outlet obstruction . multiple distal gastric ulcers with scaring . no bleeding . to keep NGT , IV Protonix and hydration . to repeat EGD in am. D/W Pt and her in details .. - Problem Patient Problems: Patient Problems Abdominal pain (Acute) R10.9 Nausea & vomiting (Acute) R11.2 Gastric outlet obstruction (Acute) K31.1 Right lower lobe pulmonary infiltrate (Acute) R91.8 Prepyloric ulcer (Acute) K25.9
--- NOTE | 2020-04-20 16:30 | RAD ---
HISTORYsobSTUDYCHEST, 1 VIEWCOMPARISONChest film January 20, 2020.FINDINGSThe trachea is midline. The cardiac silhouette is unremarkable. In NG tube is in place in good position. The lungs are clear without focal infiltrate or effusion. The bony thorax is unremarkable.IMPRESSIONNo acute cardiopulmonary disease.NG tube is in place in good position.Electronically signed by: JULES LOUIS (Apr 20, 2020 16:29:33)
[2020-04-20] MEDS: ZOFRAN INJ 4 MG VIAL IVP PRN (17:30)
--- NOTE | 2020-04-20 20:03 | PCM.PROG ---
Progress Note - Progress Note for Day of Date of Exam: 04/20/20 - Subjective Subjective: IS BEING TREATED FOR ABDOMINAL PAIN, NAUSEA AND VOMITING, AND A GASTRIC OUTLET OBSTRUCTION. EGD REVEALED THE GASTRIC OUTLET OBSTRUCTION SECONDARY TO SEVERAL PREPYLORIC ULCERS. TODAY, SHE IS ALERT AND ORIENTED ON MORNING ROUNDS. SHE CONTINUES WITH MILD ABDOMINAL PAIN, BUT DOES REP ORT SLIGHT IMPROVEMENT IN SYMPTOMS. SHE IS NOTED TO HAVE AN NG TUBE TO LOW INTERMITTENT SUCTION TODAY. HER VITALS THIS MORNING ARE: 97.7-72-20-100%-171/92. LABS WERE OBTAINED. ABNORMAL LAB VALUES INCLUDE THE FOLLOWING: POTASSIUM 2.7, BUN 2, GLUCOSE 115, CALCIUM 8.1, TOTAL PROTEIN 6.0, ALBUMIN 3.0. HER 24 HOUR GASTRIC OUTPUT YESTERDAY WAS APPROXIMATELY 650ML. SHE IS CURRENTLY RECEIVING NS AT 100 ML/HR, DIFLUCAN 200MG IV DAILY, PROTONIX 40M IV BID, PEPCID 20MG IV Q12H, ZOFRAN 4MG IV Q6H PRN, PHENERGAN 25MG IM Q6H PRN, LOPRESSOR 5MG IV Q12H PRN, ATIVAN 1MG IV Q6H PRN, AND LEVAQUIN 750 MG IV DAILY. WE WILL CONTINUE WITH CURRENT PLAN OF CARE TODAY. OTHERWISE, WE WILL FOLLOW UP WITH AM LABS AND CO NTINUE TO MONITOR. - Past Medical Family Social History Past Med/Fam/Surg Hx: No changes since H&P Allergies: Allergies No Known Drug Allergies Allergy (Verified 04/16/20 16:29) - Review of Systems ROS: No change since H&P - Vital Signs and I&O's Vital Signs: Temperature 98.1 F Pulse Rate [Left Brachial] 74 Pulse Rate 79 Respiratory Rate 18 Blood Pressure [Right Arm] 155/94 Blood Pressure [Left Arm] 160/88 Blood Pressure 171/92 O2 Sat by Pulse Oximetry 98 Intake and Output: Intake & Output 04/18/20 04/19/20 04/20/20 04/21/20 11:59 11:59 11:59 11:59 Intake Total 0 / 0 4003 / 4003 3220 / 3220 1150 / 1150 Output Total 820 / 820 100 / 100 Balance 0 / 0 3183 / 3183 3210 / 3210 1050 / 1050 - Physical Exam Oriented: Normal Eyes: Normal Ear: Normal Nose: Normal, Other (NG TUBE TO LOW INTERMITTENT SUCTION ) Throat: Normal Respiratory: Generalized, Diminished Cardiovascular: Normal : Normal Auscultation: Bowel Sounds: Decreased Tenderness: Epigastric (soft ,flat abdomen with epigastric tenderness .BS+), Moderate Skin: Normal Musculoskeletal: Normal Psychiatric: Normal Mood Description: Calm Affect: Normal Speech Pattern: Clear - Laboratory and Diagnostics Result Diagrams: 04/20/20 05:15 04/20/20 11:10 Labs: Laboratory WBC 4.7 X10^3/uL (3.6-10.0) 04/20/20 05:15 RBC 4.26 X10^6/uL (3.5-5.4) 04/20/20 05:15 Hgb 13.8 g/dL (12.0-16.0) 04/20/20 05:15 Hct 40.3 % (36.0-47.0) 04/20/20 05:15 MCV 94.6 fL (80.0-100.0) 04/20/20 05:15 MCH 32.4 pg (27.0-34.0) 04/20/20 05:15 MCHC 34.2 g/dL (33.0-35.0) 04/20/20 05:15 RDW 13.5 % (11.6-16.5) 04/20/20 05:15 Plt Count 214 X10^3/uL (150.0-450.0) 04/20/20 05:15 MPV 7.7 fL (7.4-11.0) 04/20/20 05:15 Neut % (Auto) 58.3 % (42.0-75.0) 04/20/20 05:15 Lymph % (Auto) 31.9 % (21.0-51.0) 04/20/20 05:15 [place] % (Auto) 8.3 % (0.0-13.0) 04/20/20 05:15 Eos % (Auto) 1.0 % (0.9-2.9) 04/20/20 05:15 Baso % (Auto) 0.5 % (0.2-1.0) 04/20/20 05:15 Neut # (Auto) 2.7 x10^3/uL (2.2-4.8) 04/20/20 05:15 Lymph # (Auto) 1.5 X10^3/uL (1.3-2.9) 04/20/20 05:15 [place] # (Auto) 0.4 x10^3/uL (0.3-0.8) 04/20/20 05:15 Eos # (Auto) 0.0 x10^3/uL (0.0-0.2) 04/20/20 05:15 Baso # (Auto) 0.0 X10^3/uL (0.0-0.1) 04/20/20 05:15 Absolute Nucleated RBC 0.1 /100WBC 04/20/20 05:15 Sodium 138 mmol/L (136-145) 04/20/20 05:15 Corrected Sodium 138 mmol/L (136-145) 04/20/20 05:15 Potassium 4.1 mmol/L (3.5-5.1) 04/20/20 11:10 Chloride 104 mmol/L (98-107) 04/20/20 05:15 Carbon Dioxide 24.5 mmol/L (21-32) 04/20/20 05:15 BUN 2 mg/dL (7-18) L 04/20/20 05:15 Creatinine 0.55 mg/dL (0.55-1.02) 04/20/20 05:15 Est GFR (MDRD) Af Amer > 60 (>60) 04/20/20 05:15 Est GFR (MDRD) Non-Af > 60 (>60) 04/20/20 05:15 Glucose 115 mg/dL (65-99) H 04/20/20 05:15 Calcium 8.1 mg/dL (8.5-10.1) L 04/20/20 05:15 Corrected Calcium 8.9 mg/dL (8.5-10.1) 04/20/20 05:15 Magnesium 1.9 mg/dL (1.7-2.9) 04/20/20 05:15 Ferritin 42 ng/mL (8-252) 04/18/20 05:45 Total Bilirubin 0.30 mg/dL (0.2-1.0) 04/20/20 05:15 AST 25 Units/L (15-37) 04/20/20 05:15 ALT 38 Units/L (12-78) 04/20/20 05:15 Alkaline Phosphatase 105 Units/L (46-116) 04/20/20 05:15 C-Reactive Protein 2.10 mg/L (0-3.0) 04/18/20 05:45 Total Protein 6.0 g/dL (6.4-8.2) L 04/20/20 05:15 Albumin 3.0 g/dL (3.4-5.0) L 04/20/20 05:15 Globulin 3.0 g/dL (2.5-4.5) 04/20/20 05:15 Albumin/Globulin Ratio 1.0 Ratio (1.1-2.1) L 04/20/20 05:15 Amylase 39 Units/L (25-115) 04/18/20 05:45 Lipase 114 Units/L (73-393) 04/18/20 05:45 Specimen Type Clean catch urine 04/18/20 05:50 Urine Color Yellow (YELLOW) 04/18/20 05:50 Urine Appearance Hazy (CLEAR) 04/18/20 05:50 Urine pH 6.0 (5.0 - 8.0) 04/18/20 05:50 Ur Specific [place] 1.020 (1.000-1.030) 04/18/20 05:50 Urine Protein 1+ (NEGATIVE) 04/18/20 05:50 Urine Glucose (UA) Negative (NEGATIVE) 04/18/20 05:50 Urine Ketones 4+ (NEGATIVE) 04/18/20 05:50 Urine Occult Blood 4+ (NEGATIVE) 04/18/20 05:50 Urine Nitrite Negative (NEGATIVE) 04/18/20 05:50 Urine Bilirubin Negative (NEGATIVE) 04/18/20 05:50 Urine Urobilinogen 1+ (NORMAL) 04/18/20 05:50 Ur Leukocyte Esterase Negative (NEGATIVE) 04/18/20 05:50 Urine RBC 3-5 /HPF (0-3) A 04/18/20 05:50 Urine WBC None seen /HPF (0-5) 04/18/20 05:50 Ur Squamous Epith Cells Rare /HPF (NEGATIVE) 04/18/20 05:50 Amorphous Sediment Trace /HPF (NEGATIVE) 04/18/20 05:50 Urine Bacteria Negative /HPF (NEGATIVE) 04/18/20 05:50 Urine Mucus Few /HPF (NEGATIVE) 04/18/20 05:50 Ur Culture Indicated? No/not indicated 04/18/20 05:50 Tissue Pathology To follow 04/18/20 15:29 - Plan (1) Abdominal pain Status: Acute Qualifiers: Abdominal location: generalized Qualified Code(s): R10.84 - Generalized abdominal pain Plan: NS AT 100 ML/HR, PROTONIX 40M IV BID, PEPCID 20MG IV Q12H, ZOFRAN 4MG IV Q6H PRN, PHENERGAN 25MG IM Q6H PRN, DIFLUCAN 200MG IV DAILY, AND LEVAQUIN 750 MG IV DAILY DUE TO INFILTRATES, NG TUBE TO LOW INTERMITTENT SUCTION (2) Gastric outlet obstruction Status: Acute (3) Prepyloric ulcer Status: Acute Qualifiers: Gastric ulcer chronicity: acute Qualified Code(s): K25.3 - Acute gastric ulcer without hemorrhage or perforation (4) Nausea & vomiting Status: Acute Qualifiers: Vomiting type: unspecified Vomiting Intractability: intractable Qualified Code(s): R11.2 - Nausea with vomiting, unspecified (5) Right lower lobe pulmonary infiltrate Status: Acute
[2020-04-21] MEDS: D5 1/2 NS + KCL 20 MEQ/L 1,000 ML IV SCH ×6 (00:43→23:10)
[2020-04-21 06:04] LABS: BASOPHILS % (AUTO) 0.6 % (0.2-1.0); EOSINOPHILS # (AUTO) 0.1 x10^3/uL (0.0-0.2); EOSINOPHILS % (AUTO) 0.9 % (0.9-2.9); HEMATOCRIT 41.3 % (36.0-47.0); HEMOGLOBIN 13.8 g/dL (12.0-16.0); LYMPHOCYTES # (AUTO) 1.5 X10^3/uL (1.3-2.9); MEAN CORPUSCULAR HEMOGLOBIN 31.6 pg (27.0-34.0); MEAN CORPUSCULAR HGB CONC 33.4 g/dL (33.0-35.0); MEAN CORPUSCULAR VOLUME 94.7 fL (80.0-100.0); MEAN PLATELET VOLUME 8.1 fL (7.4-11.0); MONOCYTES # (AUTO) 0.4 x10^3/uL (0.3-0.8); MONOCYTES % (AUTO) 6.9 % (0.0-13.0); NEUTROPHILS # (AUTO) 4.3 x10^3/uL (2.2-4.8); NEUTROPHILS % (AUTO) 68.6 % (42.0-75.0); PLATELET COUNT 205 X10^3/uL (150.0-450.0); RED BLOOD COUNT 4.36 X10^6/uL (3.5-5.4); RED CELL DISTRIBUTION WIDTH 13.5 % (11.6-16.5)
[2020-04-21 06:20] LABS: ALANINE AMINOTRANSFERASE 31 Units/L (12-78); ALKALINE PHOSPHATASE 106 Units/L (46-116); ASPARTATE AMINO TRANSFERASE 23 Units/L (15-37); BLOOD UREA NITROGEN 3 mg/dL (7-18); CALCIUM 8.8 mg/dL (8.5-10.1); CARBON DIOXIDE 23.9 mmol/L (21-32); CHLORIDE 105 mmol/L (98-107); COR CA(FOR HYPOALB) 9.6 mg/dL (8.5-10.1); COR NA(FOR HYPERGLY) 139 mmol/L (136-145); CREATININE 0.66 mg/dL (0.55-1.02); SODIUM 139 mmol/L (136-145); TOTAL PROTEIN 6.1 g/dL (6.4-8.2); eGFR NON BLACK RACES > 60 (>60)
[2020-04-21] MEDS: K-RIDER 10 MEQ/NS 100 ML 10 MEQ/100 ML BAG IV PRN (06:40)
[2020-04-21 06:43] LABS: WHITE BLOOD COUNT 6.7 X10^3/uL (3.6-10.0)
[2020-04-21 06:44] LABS: PLATELET MORPHOLOGY COMMENT NORMAL (NORMAL)
[2020-04-21] MEDS: PEPCID 20 MG IV PREMIX* 20 MG/50 ML BAG IV SCH ×2 (09:21→20:56)
[2020-04-21] MEDS: PROTONIX INJ 40 MG VIAL IVP SCH ×2 (09:21→20:57)
[2020-04-21] MEDS ORDERED: D5 LR 1000 ML 1,000 ML IV ONE (10:14)
--- NOTE | 2020-04-21 10:19 | PCM.PROG ---
Progress Note - Progress Note for Day of Date of Exam: 04/21/20 - Subjective Subjective: IS BEING TREATED FOR ABDOMINAL PAIN, NAUSEA AND VOMITING, AND A GASTRIC OUTLET OBSTRUCTION. EGD REVEALED THE GASTRIC OUTLET OBSTRUCTION SECONDARY TO SEVERAL PREPYLORIC ULCERS. TODAY, SHE IS ALERT AND ORIENTED ON MORNING ROUNDS. SHE CONTINUES WITH MILD ABDOMINAL PAIN. SHE HAS NOT YET HAD A BOWEL MOVEMENT. SHE IS NOTED TO HAVE AN NG TUBE TO LOW INTERMITTENT SUCTION TODAY. BILE NOTED IN THE DREAINAGE. HER VITALS THIS MORNING ARE: 98.0-80-20-98%-165/92. LABS WERE OBTAINED. ABNORMAL LAB VALUES INCLUDE THE FOLLOWING: POTASSIUM 3.3, BUN 3, GLUCOSE 117, TOTAL PROTEIN 6.1, ALBUMIN 3.0. SHE IS CURRENTLY RECEIVING NS AT 100 ML/HR, DIFLUCAN 200MG IV DAILY, PROTONIX 40M IV BID, PEPCID 20MG IV Q12H, ZOFRAN 4MG IV Q6H PRN, PHENERGAN 25MG IM Q6H PRN, LOPRESSOR 5MG IV Q12H PRN, ATIVAN 1MG IV Q6H PRN, AND LEVAQUIN 750 MG IV DAILY. WE WILL CONTINUE WITH CURRENT PLAN OF CARE TODAY. PLANS TO TAKE HER BACK DOWN TO THE OR FOR A REPEAT EGD. WE ARE IN AGREEMENT WITH PLANS. OTHERWISE, WE WILL FOLLOW UP WITH AM LABS AND CONTINUE TO MONITOR. - Past Medical Family Social History Past Med/Fam/Surg Hx: No changes since H&P Allergies: Allergies No Known Drug Allergies Allergy (Verified 04/16/20 16:29) - Review of Systems ROS: No change since H&P - Vital Signs and I&O's Vital Signs: Temperature 98.0 F Pulse Rate [Left Brachial] 80 Pulse Rate 79 Respiratory Rate 20 Blood Pressure [Right Arm] 165/92 Blood Pressure [Left Arm] 160/88 Blood Pressure 171/92 O2 Sat by Pulse Oximetry 98 Intake and Output: Intake & Output 04/18/20 04/19/20 04/20/20 04/21/20 11:59 11:59 11:59 11:59 Intake Total 0 / 0 4003 / 4003 3220 / 3220 3069 / 3069 Output Total 820 / 820 120 / 120 Balance 0 / 0 3183 / 3183 3210 / 3210 2949 / 2949 - Physical Exam Oriented: Normal Eyes: Normal Ear: Normal Nose: Normal, Other (NG TUBE TO LOW INTERMITTENT SUCTION ) Throat: Normal Respiratory: Generalized, Diminished Cardiovascular: Normal : Normal Auscultation: Bowel Sounds: Decreased Tenderness: Epigastric (soft ,flat abdomen with epigastric tenderness .BS+), Moderate Skin: Normal Musculoskeletal: Normal Psychiatric: Normal Mood Description: Calm Affect: Normal Speech Pattern: Clear, Appropriate - Laboratory and Diagnostics Result Diagrams: 04/21/20 05:20 04/21/20 09:15 Labs: Laboratory WBC 6.7 X10^3/uL (3.6-10.0) 04/21/20 05:20 RBC 4.36 X10^6/uL (3.5-5.4) 04/21/20 05:20 Hgb 13.8 g/dL (12.0-16.0) 04/21/20 05:20 Hct 41.3 % (36.0-47.0) 04/21/20 05:20 MCV 94.7 fL (80.0-100.0) 04/21/20 05:20 MCH 31.6 pg (27.0-34.0) 04/21/20 05:20 MCHC 33.4 g/dL (33.0-35.0) 04/21/20 05:20 RDW 13.5 % (11.6-16.5) 04/21/20 05:20 Plt Count 205 X10^3/uL (150.0-450.0) 04/21/20 05:20 Plt Count Comment Adequate (ADEQUATE) 04/21/20 05:20 MPV 8.1 fL (7.4-11.0) 04/21/20 05:20 Neut % (Auto) 68.6 % (42.0-75.0) 04/21/20 05:20 Lymph % (Auto) 23.0 % (21.0-51.0) 04/21/20 05:20 [place] % (Auto) 6.9 % (0.0-13.0) 04/21/20 05:20 Eos % (Auto) 0.9 % (0.9-2.9) 04/21/20 05:20 Baso % (Auto) 0.6 % (0.2-1.0) 04/21/20 05:20 Neut # (Auto) 4.3 x10^3/uL (2.2-4.8) 04/21/20 05:20 Lymph # (Auto) 1.5 X10^3/uL (1.3-2.9) 04/21/20 05:20 [place] # (Auto) 0.4 x10^3/uL (0.3-0.8) 04/21/20 05:20 Eos # (Auto) 0.1 x10^3/uL (0.0-0.2) 04/21/20 05:20 Baso # (Auto) 0.0 X10^3/uL (0.0-0.1) 04/21/20 05:20 Absolute Nucleated RBC 0.1 /100WBC 04/21/20 05:20 Plt Morphology Comment Normal (NORMAL) 04/21/20 05:20 RBC Morphology Normal (NORMAL) 04/21/20 05:20 Sodium 139 mmol/L (136-145) 04/21/20 05:20 Corrected Sodium 139 mmol/L (136-145) 04/21/20 05:20 Potassium 3.8 mmol/L (3.5-5.1) 04/21/20 09:15 Chloride 105 mmol/L (98-107) 04/21/20 05:20 Carbon Dioxide 23.9 mmol/L (21-32) 04/21/20 05:20 BUN 3 mg/dL (7-18) L 04/21/20 05:20 Creatinine 0.66 mg/dL (0.55-1.02) 04/21/20 05:20 Est GFR (MDRD) Af Amer > 60 (>60) 04/21/20 05:20 Est GFR (MDRD) Non-Af > 60 (>60) 04/21/20 05:20 Glucose 117 mg/dL (65-99) H 04/21/20 05:20 Calcium 8.8 mg/dL (8.5-10.1) 04/21/20 05:20 Corrected Calcium 9.6 mg/dL (8.5-10.1) 04/21/20 05:20 Magnesium 1.7 mg/dL (1.7-2.9) 04/21/20 05:55 Ferritin 42 ng/mL (8-252) 04/18/20 05:45 Total Bilirubin 0.30 mg/dL (0.2-1.0) 04/21/20 05:20 AST 23 Units/L (15-37) 04/21/20 05:20 ALT 31 Units/L (12-78) 04/21/20 05:20 Alkaline Phosphatase 106 Units/L (46-116) 04/21/20 05:20 C-Reactive Protein 2.10 mg/L (0-3.0) 04/18/20 05:45 Total Protein 6.1 g/dL (6.4-8.2) L 04/21/20 05:20 Albumin 3.0 g/dL (3.4-5.0) L 04/21/20 05:20 Globulin 3.1 g/dL (2.5-4.5) 04/21/20 05:20 Albumin/Globulin Ratio 1.0 Ratio (1.1-2.1) L 04/21/20 05:20 Amylase 39 Units/L (25-115) 04/18/20 05:45 Lipase 114 Units/L (73-393) 04/18/20 05:45 Specimen Type Clean catch urine 04/18/20 05:50 Urine Color Yellow (YELLOW) 04/18/20 05:50 Urine Appearance Hazy (CLEAR) 04/18/20 05:50 Urine pH 6.0 (5.0 - 8.0) 04/18/20 05:50 Ur Specific [place] 1.020 (1.000-1.030) 04/18/20 05:50 Urine Protein 1+ (NEGATIVE) 04/18/20 05:50 Urine Glucose (UA) Negative (NEGATIVE) 04/18/20 05:50 Urine Ketones 4+ (NEGATIVE) 04/18/20 05:50 Urine Occult Blood 4+ (NEGATIVE) 04/18/20 05:50 Urine Nitrite Negative (NEGATIVE) 04/18/20 05:50 Urine Bilirubin Negative (NEGATIVE) 04/18/20 05:50 Urine Urobilinogen 1+ (NORMAL) 04/18/20 05:50 Ur Leukocyte Esterase Negative (NEGATIVE) 04/18/20 05:50 Urine RBC 3-5 /HPF (0-3) A 04/18/20 05:50 Urine WBC None seen /HPF (0-5) 04/18/20 05:50 Ur Squamous Epith Cells Rare /HPF (NEGATIVE) 04/18/20 05:50 Amorphous Sediment Trace /HPF (NEGATIVE) 04/18/20 05:50 Urine Bacteria Negative /HPF (NEGATIVE) 04/18/20 05:50 Urine Mucus Few /HPF (NEGATIVE) 04/18/20 05:50 Ur Culture Indicated? No/not indicated 04/18/20 05:50 Tissue Pathology To follow 04/18/20 15:29 - Plan (1) Abdominal pain Status: Acute Qualifiers: Abdominal location: generalized Qualified Code(s): R10.84 - Generalized abdominal pain Plan: NS AT 100 ML/HR, PROTONIX 40M IV BID, PEPCID 20MG IV Q12H, ZOFRAN 4MG IV Q 6H PRN, PHENERGAN 25MG IM Q6H PRN, DIFLUCAN 200MG IV DAILY, AND LEVAQUIN 750 MG IV DAILY DUE TO INFILTRATES, NG TUBE TO LOW INTERMITTENT SUCTION (2) Gastric outlet obstruction Status: Acute (3) Prepyloric ulcer Status: Acute Qualifiers: Gastric ulcer chronicity: acute Qualified Code(s): K25.3 - Acute gastric ulcer without hemorrhage or perforation (4) Nausea & vomiting Status: Acute Qualifiers: Vomiting type: unspecified Vomiting Intractability: intractable Qualified Code(s): R11.2 - Nausea with vomiting, unspecified (5) Right lower lobe pulmonary infiltrate Status: Acute
[2020-04-21] MEDS ORDERED: DIPRIVAN VIAL 20 ML ONE ×2 (10:25→10:40)
[2020-04-21] MEDS ORDERED: STERILE WATER IRRIGATION IR ONE (16:00)
[2020-04-21] MEDS: DIFLUCAN 200 MG IV PREMIX* 200 MG/100 ML BAG IV SCH (19:21)
[2020-04-21] MEDS: LEVAQUIN PREMIX IV 750 MG 750 MG/150 ML BAG IV SCH (19:22)
[2020-04-22] MEDS: D5 1/2 NS + KCL 20 MEQ/L 1,000 ML IV SCH ×4 (02:18→23:05)
[2020-04-22 06:29] LABS: ALANINE AMINOTRANSFERASE 24 Units/L (12-78); ALBUMIN 2.5 g/dL (3.4-5.0); ALKALINE PHOSPHATASE 91 Units/L (46-116); ASPARTATE AMINO TRANSFERASE 16 Units/L (15-37); BLOOD UREA NITROGEN 3 mg/dL (7-18); CALCIUM 8.2 mg/dL (8.5-10.1); CARBON DIOXIDE 25.1 mmol/L (21-32); CHLORIDE 107 mmol/L (98-107); COR CA(FOR HYPOALB) 9.4 mg/dL (8.5-10.1); CREATININE 0.68 mg/dL (0.55-1.02); SODIUM 140 mmol/L (136-145); TOTAL PROTEIN 5.4 g/dL (6.4-8.2); eGFR NON BLACK RACES > 60 (>60)
[2020-04-22 06:49] LABS: BASOPHILS % (AUTO) 0.4 % (0.2-1.0); EOSINOPHILS # (AUTO) 0.1 x10^3/uL (0.0-0.2); EOSINOPHILS % (AUTO) 1.5 % (0.9-2.9); HEMATOCRIT 36.3 % (36.0-47.0); HEMOGLOBIN 12.2 g/dL (12.0-16.0); LYMPHOCYTES # (AUTO) 1.4 X10^3/uL (1.3-2.9); LYMPHOCYTES % (AUTO) 27.5 % (21.0-51.0); MEAN CORPUSCULAR HEMOGLOBIN 32.3 pg (27.0-34.0); MEAN CORPUSCULAR HGB CONC 33.6 g/dL (33.0-35.0); MEAN CORPUSCULAR VOLUME 96.2 fL (80.0-100.0); MEAN PLATELET VOLUME 8.3 fL (7.4-11.0); MONOCYTES # (AUTO) 0.4 x10^3/uL (0.3-0.8); MONOCYTES % (AUTO) 7.1 % (0.0-13.0); NEUTROPHILS # (AUTO) 3.3 x10^3/uL (2.2-4.8); NEUTROPHILS % (AUTO) 63.5 % (42.0-75.0); PLATELET COUNT 192 X10^3/uL (150.0-450.0); RED BLOOD COUNT 3.77 X10^6/uL (3.5-5.4); RED CELL DISTRIBUTION WIDTH 13.6 % (11.6-16.5); WHITE BLOOD COUNT 5.2 X10^3/uL (3.6-10.0)
[2020-04-22] MEDS: PEPCID 20 MG IV PREMIX* 20 MG/50 ML BAG IV SCH ×2 (08:51→20:29)
[2020-04-22] MEDS: DIFLUCAN 200 MG IV PREMIX* 200 MG/100 ML BAG IV SCH (09:27)
[2020-04-22] MEDS: PROTONIX INJ 40 MG VIAL IVP SCH ×2 (09:28→20:30)
[2020-04-22] MEDS: LEVAQUIN PREMIX IV 750 MG 750 MG/150 ML BAG IV SCH (10:46)
[2020-04-22] MEDS: ZOFRAN INJ 4 MG VIAL IVP PRN (19:29)
[2020-04-23] MEDS: D5 1/2 NS + KCL 20 MEQ/L 1,000 ML IV SCH ×4 (04:48→22:47)
[2020-04-23 06:34] LABS: BASOPHILS % (AUTO) 0.7 % (0.2-1.0); EOSINOPHILS # (AUTO) 0.1 x10^3/uL (0.0-0.2); EOSINOPHILS % (AUTO) 2.1 % (0.9-2.9); HEMATOCRIT 34.6 % (36.0-47.0); HEMOGLOBIN 11.6 g/dL (12.0-16.0); LYMPHOCYTES # (AUTO) 1.5 X10^3/uL (1.3-2.9); LYMPHOCYTES % (AUTO) 42.2 % (21.0-51.0); MEAN CORPUSCULAR HGB CONC 33.5 g/dL (33.0-35.0); MEAN CORPUSCULAR VOLUME 95.7 fL (80.0-100.0); MEAN PLATELET VOLUME 7.9 fL (7.4-11.0); MONOCYTES # (AUTO) 0.3 x10^3/uL (0.3-0.8); NEUTROPHILS # (AUTO) 1.7 x10^3/uL (2.2-4.8); PLATELET COUNT 182 X10^3/uL (150.0-450.0); RED BLOOD COUNT 3.61 X10^6/uL (3.5-5.4); RED CELL DISTRIBUTION WIDTH 13.7 % (11.6-16.5); WHITE BLOOD COUNT 3.6 X10^3/uL (3.6-10.0)
[2020-04-23 06:56] LABS: ALANINE AMINOTRANSFERASE 21 Units/L (12-78); ALBUMIN 2.5 g/dL (3.4-5.0); ALKALINE PHOSPHATASE 89 Units/L (46-116); ASPARTATE AMINO TRANSFERASE 17 Units/L (15-37); BLOOD UREA NITROGEN 3 mg/dL (7-18); CALCIUM 8.2 mg/dL (8.5-10.1); CARBON DIOXIDE 23.2 mmol/L (21-32); CHLORIDE 108 mmol/L (98-107); COR CA(FOR HYPOALB) 9.4 mg/dL (8.5-10.1); CREATININE 0.67 mg/dL (0.55-1.02); SODIUM 141 mmol/L (136-145); TOTAL PROTEIN 5.3 g/dL (6.4-8.2); eGFR NON BLACK RACES > 60 (>60)
[2020-04-23] MEDS: PROTONIX INJ 40 MG VIAL IVP SCH ×2 (08:37→21:13)
[2020-04-23] MEDS: DIFLUCAN 200 MG IV PREMIX* 200 MG/100 ML BAG IV SCH (08:37)
[2020-04-23] MEDS: LEVAQUIN PREMIX IV 750 MG 750 MG/150 ML BAG IV SCH (08:37)
[2020-04-23] MEDS: PEPCID 20 MG IV PREMIX* 20 MG/50 ML BAG IV SCH ×2 (08:37→21:12)
[2020-04-23] MEDS: ZOFRAN INJ 4 MG VIAL IVP PRN (20:40)
[2020-04-24] MEDS: D5 1/2 NS + KCL 20 MEQ/L 1,000 ML IV SCH ×3 (04:56→15:14)
[2020-04-24 06:28] LABS: BASOPHILS % (AUTO) 0.9 % (0.2-1.0); EOSINOPHILS # (AUTO) 0.1 x10^3/uL (0.0-0.2); EOSINOPHILS % (AUTO) 2.2 % (0.9-2.9); HEMOGLOBIN 11.8 g/dL (12.0-16.0); LYMPHOCYTES # (AUTO) 1.5 X10^3/uL (1.3-2.9); LYMPHOCYTES % (AUTO) 36.4 % (21.0-51.0); MEAN CORPUSCULAR HEMOGLOBIN 32.4 pg (27.0-34.0); MEAN CORPUSCULAR HGB CONC 33.8 g/dL (33.0-35.0); MEAN CORPUSCULAR VOLUME 95.8 fL (80.0-100.0); MEAN PLATELET VOLUME 8.3 fL (7.4-11.0); MONOCYTES # (AUTO) 0.4 x10^3/uL (0.3-0.8); MONOCYTES % (AUTO) 10.3 % (0.0-13.0); NEUTROPHILS % (AUTO) 50.2 % (42.0-75.0); PLATELET COUNT 173 X10^3/uL (150.0-450.0); RED BLOOD COUNT 3.65 X10^6/uL (3.5-5.4); RED CELL DISTRIBUTION WIDTH 13.4 % (11.6-16.5)
[2020-04-24 06:40] LABS: ALANINE AMINOTRANSFERASE 21 Units/L (12-78); ALBUMIN 2.6 g/dL (3.4-5.0); ALKALINE PHOSPHATASE 96 Units/L (46-116); ASPARTATE AMINO TRANSFERASE 17 Units/L (15-37); BLOOD UREA NITROGEN 1 mg/dL (7-18); CALCIUM 8.9 mg/dL (8.5-10.1); CARBON DIOXIDE 26.6 mmol/L (21-32); CHLORIDE 106 mmol/L (98-107); CREATININE 0.69 mg/dL (0.55-1.02); SODIUM 140 mmol/L (136-145); TOTAL PROTEIN 5.5 g/dL (6.4-8.2); eGFR NON BLACK RACES > 60 (>60)
[2020-04-24] MEDS: LEVAQUIN PREMIX IV 750 MG 750 MG/150 ML BAG IV SCH (08:48)
[2020-04-24] MEDS: PEPCID 20 MG IV PREMIX* 20 MG/50 ML BAG IV SCH (08:48)
[2020-04-24] MEDS: DIFLUCAN 200 MG IV PREMIX* 200 MG/100 ML BAG IV SCH (08:48)
[2020-04-24] MEDS: PROTONIX INJ 40 MG VIAL IVP SCH (08:48)
--- NOTE | 2020-04-24 11:26 | PCM.PROG ---
Progress Note - Progress Note for Day of Date of Exam: 04/22/20 - Subjective Subjective: IS BEING TREATED FOR ABDOMINAL PAIN, NAUSEA AND VOMITING, AND A GASTRIC OUTLET OBSTRUCTION. REPEAT EGD WAS DONE YESTERDAY AND REVEALED MODERATE ESOPHAGITIS, GASTRITIS, AND GASTRIC OUTLET OBSTRUCTION, SLIGHTLY IMPROVED. A MODERATE AMOUNT OF DRAINAGE WS SUCTIONED FROM THE STOMACH D URING PROCEDURE. HER NG TUBE WAS REMOVED YESTERDAY. TODAY, SHE IS ALERT AND ORIENTED ON MORNING ROUNDS. SHE CONTINUES WITH MILD ABDOMINAL PAIN. SHE HAS NOT YET HAD A BOWEL MOVEMENT. HER VITALS THIS MORNING ARE: 99.1-84-18-99%RA-121/74. LABS WERE OBTAINED. ABNORMAL LAB VALUES INCLUDE THE FOLLOWING: POTASSIUM 3.3, BUN 3, GLUCOSE 101, CALCIUM 8.2, TOTAL PROTEIN 5.4, ALBUMIN 2.5. SHE IS CURRENTLY RECEIVING D5 1/2NS WITH 20MEQ KCL AT 150 ML/HR, DIFLUCAN 200MG IV DAILY, PROTONIX 40MG IV BID, PEPCID 20MG IV Q12H, ZOFRAN 4MG IV Q6H PRN, PHENERGAN 25MG IM Q6H PRN, LOPRESSOR 5MG IV Q12H PRN, ATIVAN 1MG IV Q6H PRN, AND LEVAQUIN 750 MG IV DAILY. SHE IS TOLERATING CLEAR LIQUIDS WELL. WE WILL CONTINUE WITH CURRENT PLAN OF CARE TODAY. OTHERWISE, WE WILL FOLLOW UP WITH AM LABS AND CONTINUE TO MONITOR. - Past Medical Family Social History Past Med/Fam/Surg Hx: No changes since H&P Allergies: Allergies No Known Drug Allergies Allergy (Verified 04/16/20 16:29) - Review of Systems ROS: No change since H&P - Vital Signs and I&O's Vital Signs: Temperature 99 F Pulse Rate [Left Brachial] 74 Pulse Rate 79 Respiratory Rate 18 Blood Pressure [Right Arm] 108/69 Blood Pressure [Left Arm] 160/88 Blood Pressure 171/92 O2 Sat by Pulse Oximetry 98 Intake and Output: Intake & Output 04/21/20 04/22/20 04/23/20 04/24/20 11:59 11:59 11:59 11:59 Intake Total 3169 / 3169 3623 / 3623 3285 / 3285 4551 / 4551 Output Total 120 / 120 Balance 3049 / 3049 3623 / 3623 3285 / 3285 4551 / 4551 - Physical Exam Oriented: Normal Eyes: Normal Ear: Normal Nose: Normal Throat: Normal Respiratory: Generalized, Diminished Cardiovascular: Normal : Normal Auscultation: Bowel Sounds: Decreased Palpation: Normal Tenderness: Epigastric (soft ,flat abdomen with epigastric tenderness .BS+), Moderate Skin: Normal Musculoskeletal: Normal Psychiatric: Normal Mood Description: Calm Affect: Normal Speech Pattern: Clear, Appropriate - Laboratory and Diagnostics Result Diagrams: 04/24/20 05:35 04/24/20 05:35 Labs: Laboratory WBC 4.0 X10^3/uL (3.6-10.0) 04/24/20 05:35 RBC 3.65 X10^6/uL (3.5-5.4) 04/24/20 05:35 Hgb 11.8 g/dL (12.0-16.0) L 04/24/20 05:35 Hct 35.0 % (36.0-47.0) L 04/24/20 05:35 MCV 95.8 fL (80.0-100.0) 04/24/20 05:35 MCH 32.4 pg (27.0-34.0) 04/24/20 05:35 MCHC 33.8 g/dL (33.0-35.0) 04/24/20 05:35 RDW 13.4 % (11.6-16.5) 04/24/20 05:35 Plt Count 173 X10^3/uL (150.0-450.0) 04/24/20 05:35 Plt Count Comment Adequate (ADEQUATE) 04/21/20 05:20 MPV 8.3 fL (7.4-11.0) 04/24/20 05:35 Neut % (Auto) 50.2 % (42.0-75.0) 04/24/20 05:35 Lymph % (Auto) 36.4 % (21.0-51.0) 04/24/20 05:35 [place] % (Auto) 10.3 % (0.0-13.0) 04/24/20 05:35 Eos % (Auto) 2.2 % (0.9-2.9) 04/24/20 05:35 Baso % (Auto) 0.9 % (0.2-1.0) 04/24/20 05:35 Neut # (Auto) 2.0 x10^3/uL (2.2-4.8) L 04/24/20 05:35 Lymph # (Auto) 1.5 X10^3/uL (1.3-2.9) 04/24/20 05:35 [place] # (Auto) 0.4 x10^3/uL (0.3-0.8) 04/24/20 05:35 Eos # (Auto) 0.1 x10^3/uL (0.0-0.2) 04/24/20 05:35 Baso # (Auto) 0.0 X10^3/uL (0.0-0.1) 04/24/20 05:35 Absolute Nucleated RBC 0.0 /100WBC 04/24/20 05:35 Plt Morphology Comment Normal (NORMAL) 04/21/20 05:20 RBC Morphology Normal (NORMAL) 04/21/20 05:20 Sodium 140 mmol/L (136-145) 04/24/20 05:35 Corrected Sodium TNP 04/24/20 05:35 Potassium 4.4 mmol/L (3.5-5.1) 04/24/20 05:35 Chloride 106 mmol/L (98-107) 04/24/20 05:35 Carbon Dioxide 26.6 mmol/L (21-32) 04/24/20 05:35 BUN 1 mg/dL (7-18) L 04/24/20 05:35 Creatinine 0.69 mg/dL (0.55-1.02) 04/24/20 05:35 Est GFR (MDRD) Af Amer > 60 (>60) 04/24/20 05:35 Est GFR (MDRD) Non-Af > 60 (>60) 04/24/20 05:35 Glucose 99 mg/dL (65-99) 04/24/20 05:35 Calcium 8.9 mg/dL (8.5-10.1) 04/24/20 05:35 Corrected Calcium 10.0 mg/dL (8.5-10.1) 04/24/20 05:35 Magnesium 1.7 mg/dL (1.7-2.9) 04/21/20 05:55 Ferritin 42 ng/mL (8-252) 04/18/20 05:45 Total Bilirubin 0.30 mg/dL (0.2-1.0) 04/24/20 05:35 AST 17 Units/L (15-37) 04/24/20 05:35 ALT 21 Units/L (12-78) 04/24/20 05:35 Alkaline Phosphatase 96 Units/L (46-116) 04/24/20 05:35 C-Reactive Protein 2.10 mg/L (0-3.0) 04/18/20 05:45 Total Protein 5.5 g/dL (6.4-8.2) L 04/24/20 05:35 Albumin 2.6 g/dL (3.4-5.0) L 04/24/20 05:35 Globulin 2.9 g/dL (2.5-4.5) 04/24/20 05:35 Albumin/Globulin Ratio 0.9 Ratio (1.1-2.1) L 04/24/20 05:35 Amylase 39 Units/L (25-115) 04/18/20 05:45 Lipase 114 Units/L (73-393) 04/18/20 05:45 Carcinoembryonic Ag 5.7 ng/mL (0.0-3.0) H 04/20/20 05:15 Specimen Type Clean catch urine 04/18/20 05:50 Urine Color Yellow (YELLOW) 04/18/20 05:50 Urine Appearance Hazy (CLEAR) 04/18/20 05:50 Urine pH 6.0 (5.0 - 8.0) 04/18/20 05:50 Ur Specific [place] 1.020 (1.000-1.030) 04/18/20 05:50 Urine Protein 1+ (NEGATIVE) 04/18/20 05:50 Urine Glucose (UA) Negative (NEGATIVE) 04/18/20 05:50 Urine Ketones 4+ (NEGATIVE) 04/18/20 05:50 Urine Occult Blood 4+ (NEGATIVE) 04/18/20 05:50 Urine Nitrite Negative (NEGATIVE) 04/18/20 05:50 Urine Bilirubin Negative (NEGATIVE) 04/18/20 05:50 Urine Urobilinogen 1+ (NORMAL) 04/18/20 05:50 Ur Leukocyte Esterase Negative (NEGATIVE) 04/18/20 05:50 Urine RBC 3-5 /HPF (0-3) A 04/18/20 05:50 Urine WBC None seen /HPF (0-5) 04/18/20 05:50 Ur Squamous Epith Cells Rare /HPF (NEGATIVE) 04/18/20 05:50 Amorphous Sediment Trace /HPF (NEGATIVE) 04/18/20 05:50 Urine Bacteria Negative /HPF (NEGATIVE) 04/18/20 05:50 Urine Mucus Few /HPF (NEGATIVE) 04/18/20 05:50 Ur Culture Indicated? No/not indicated 04/18/20 05:50 Tissue Pathology To follow 04/21/20 10:45 - Plan (1) Abdominal pain Status: Acute Qualifiers: Abdominal location: generalized Qualified Code(s): R10.84 - Generalized abdominal pain Plan: NS AT 100 ML/HR, PROTONIX 40M IV BID, PEPCID 20MG IV Q12H, ZOFRAN 4MG IV Q6H PRN, PHENERGAN 25MG IM Q6H PRN, DIFLUCAN 200MG IV DAILY, AND LEVAQUIN 750 MG IV DAILY (2) Gastric outlet obstruction Status: Acute (3) Prepyloric ulcer Status: Acute Qualifiers: Gastric ulcer chronicity: acute Qualified Code(s): K25.3 - Acute gastric ulcer without hemorrhage or perforation (4) Nausea & vomiting Status: Acute Qualifiers: Vomiting type: unspecified Vomiting Intractability: intractable Qualified Code(s): R11.2 - Nausea with vomiting, unspecified (5) Right lower lobe pulmonary infiltrate Status: Acute
--- NOTE | 2020-04-24 11:31 | PCM.PROG ---
Progress Note - Progress Note for Day of Date of Exam: 04/23/20 - Subjective Subjective: IS BEING TREATED FOR ABDOMINAL PAIN, NAUSEA AND VOMITING, AND A GASTRIC OUTLET OBSTRUCTION. REPEAT EGD WAS DONE FRIDAY AND REVEALED MODERATE ESOPHAGITIS, GASTRITIS, AND GASTRIC OUTLET OBSTRUCTION, SLIGHTLY IMPROVED. A MODERATE AMOUNT OF DRAINAGE WS SUCTIONED FROM THE STOMACH DURING PROCEDURE. TODAY, SHE IS ALERT AND ORIENTED ON MORNING ROUNDS. SHE CONTINUES WITH MILD ABDOMINAL PAIN. SHE STILL HASNT HAD A BOWEL MOVEMENT. HER VITALS THIS MORNING ARE: 98.1-74-18-97%-114/69. LABS WERE OBTAINED. ABNORMAL LAB VALUES INCLUDE THE FOLLOWING: HGB 11.6, HCT 34.6, CHLORIDE 108, BUN 3, CALCIUM 8.2, TOTAL PROTEIN 5.3, ALBUMIN 2.5. PATHOLOGY PENDING. SHE IS CURRENTLY RECEIVING D5 1/2NS WITH 20MEQ KCL AT 150 ML/HR, DIFLUCAN 200MG IV DAILY, PROTONIX 40MG IV BID, PEPCID 20MG IV Q12H, ZOFRAN 4MG IV Q6H PRN, PHENERGAN 25MG IM Q6H PRN, LOPRESSOR 5MG IV Q12H PRN, ATIVAN 1MG IV Q6H PRN, AND LEVAQUIN 750 MG IV DAILY. SHE IS TOLERATING CLEAR LIQUIDS WELL. HAS ORDERED FOR AN UPPER GI STUDY AND A GASTRIC EMPTYING SCAN TO BE OBTAINED. THESE SHOULD BE OBTAINED TOMORROW. WE WILL CONTINUE WITH CURRENT PLAN OF CARE TODAY. OTHERWISE, WE WILL FOLLOW UP WITH AM LABS AND CONTINUE TO MONITOR. - Past Medical Family Social History Past Med/Fam/Surg Hx: No changes since H&P Allergies: Allergies No Known Drug Allergies Allergy (Verified 04/16/20 16:29) - Review of Systems ROS: No change since H&P - Vital Signs and I&O's Vital Signs: Temperature 99 F Pulse Rate [Left Brachial] 74 Pulse Rate 79 Respiratory Rate 18 Blood Pressure [Right Arm] 108/69 Blood Pressure [Left Arm] 160/88 Blood Pressure 171/92 O2 Sat by Pulse Oximetry 98 Intake and Output: Intake & Output 04/21/20 04/22/20 04/23/20 04/24/20 11:59 11:59 11:59 11:59 Intake Total 3169 / 3169 3623 / 3623 3285 / 3285 4551 / 4551 Output Total 120 / 120 Balance 3049 / 3049 3623 / 3623 3285 / 3285 4551 / 4551 - Physical Exam Oriented: Normal Eyes: Normal Ear: Normal Nose: Normal Throat: Normal Respiratory: Generalized, Diminished Cardiovascular: Normal : Normal Auscultation: Bowel Sounds: Decreased Tenderness: Epigastric (soft ,flat abdomen with epigastric tenderness .BS+), Moderate Skin: Normal Musculoskeletal: Normal Psychiatric: Normal Mood Description: Calm Affect: Normal Speech Pattern: Clear, Appropriate - Laboratory and Diagnostics Result Diagrams: 04/24/20 05:35 04/24/20 05:35 Labs: Laboratory WBC 4.0 X10^3/uL (3.6-10.0) 04/24/20 05:35 RBC 3.65 X10^6/uL (3.5-5.4) 04/24/20 05:35 Hgb 11.8 g/dL (12.0-16.0) L 04/24/20 05:35 Hct 35.0 % (36.0-47.0) L 04/24/20 05:35 MCV 95.8 fL (80.0-100.0) 04/24/20 05:35 MCH 32.4 pg (27.0-34.0) 04/24/20 05:35 MCHC 33.8 g/dL (33.0-35.0) 04/24/20 05:35 RDW 13.4 % (11.6-16.5) 04/24/20 05:35 Plt Count 173 X10^3/uL (150.0-450.0) 04/24/20 05:35 Plt Count Comment Adequate (ADEQUATE) 04/21/20 05:20 MPV 8.3 fL (7.4-11.0) 04/24/20 05:35 Neut % (Auto) 50.2 % (42.0-75.0) 04/24/20 05:35 Lymph % (Auto) 36.4 % (21.0-51.0) 04/24/20 05:35 [place] % (Auto) 10.3 % (0.0-13.0) 04/24/20 05:35 Eos % (Auto) 2.2 % (0.9-2.9) 04/24/20 05:35 Baso % (Auto) 0.9 % (0.2-1.0) 04/24/20 05:35 Neut # (Auto) 2.0 x10^3/uL (2.2-4.8) L 04/24/20 05:35 Lymph # (Auto) 1.5 X10^3/uL (1.3-2.9) 04/24/20 05:35 [place] # (Auto) 0.4 x10^3/uL (0.3-0.8) 04/24/20 05:35 Eos # (Auto) 0.1 x10^3/uL (0.0-0.2) 04/24/20 05:35 Baso # (Auto) 0.0 X10^3/uL (0.0-0.1) 04/24/20 05:35 Absolute Nucleated RBC 0.0 /100WBC 04/24/20 05:35 Plt Morphology Comment Normal (NORMAL) 04/21/20 05:20 RBC Morphology Normal (NORMAL) 04/21/20 05:20 Sodium 140 mmol/L (136-145) 04/24/20 05:35 Corrected Sodium TNP 04/24/20 05:35 Potassium 4.4 mmol/L (3.5-5.1) 04/24/20 05:35 Chloride 106 mmol/L (98-107) 04/24/20 05:35 Carbon Dioxide 26.6 mmol/L (21-32) 04/24/20 05:35 BUN 1 mg/dL (7-18) L 04/24/20 05:35 Creatinine 0.69 mg/dL (0.55-1.02) 04/24/20 05:35 Est GFR (MDRD) Af Amer > 60 (>60) 04/24/20 05:35 Est GFR (MDRD) Non-Af > 60 (>60) 04/24/20 05:35 Glucose 99 mg/dL (65-99) 04/24/20 05:35 Calcium 8.9 mg/dL (8.5-10.1) 04/24/20 05:35 Corrected Calcium 10.0 mg/dL (8.5-10.1) 04/24/20 05:35 Magnesium 1.7 mg/dL (1.7-2.9) 04/21/20 05:55 Ferritin 42 ng/mL (8-252) 04/18/20 05:45 Total Bilirubin 0.30 mg/dL (0.2-1.0) 04/24/20 05:35 AST 17 Units/L (15-37) 04/24/20 05:35 ALT 21 Units/L (12-78) 04/24/20 05:35 Alkaline Phosphatase 96 Units/L (46-116) 04/24/20 05:35 C-Reactive Protein 2.10 mg/L (0-3.0) 04/18/20 05:45 Total Protein 5.5 g/dL (6.4-8.2) L 04/24/20 05:35 Albumin 2.6 g/dL (3.4-5.0) L 04/24/20 05:35 Globulin 2.9 g/dL (2.5-4.5) 04/24/20 05:35 Albumin/Globulin Ratio 0.9 Ratio (1.1-2.1) L 04/24/20 05:35 Amylase 39 Units/L (25-115) 04/18/20 05:45 Lipase 114 Units/L (73-393) 04/18/20 05:45 Carcinoembryonic Ag 5.7 ng/mL (0.0-3.0) H 04/20/20 05:15 Specimen Type Clean catch urine 04/18/20 05:50 Urine Color Yellow (YELLOW) 04/18/20 05:50 Urine Appearance Hazy (CLEAR) 04/18/20 05:50 Urine pH 6.0 (5.0 - 8.0) 04/18/20 05:50 Ur Specific [place] 1.020 (1.000-1.030) 04/18/20 05:50 Urine Protein 1+ (NEGATIVE) 04/18/20 05:50 Urine Glucose (UA) Negative (NEGATIVE) 04/18/20 05:50 Urine Ketones 4+ (NEGATIVE) 04/18/20 05:50 Urine Occult Blood 4+ (NEGATIVE) 04/18/20 05:50 Urine Nitrite Negative (NEGATIVE) 04/18/20 05:50 Urine Bilirubin Negative (NEGATIVE) 04/18/20 05:50 Urine Urobilinogen 1+ (NORMAL) 04/18/20 05:50 Ur Leukocyte Esterase Negative (NEGATIVE) 04/18/20 05:50 Urine RBC 3-5 /HPF (0-3) A 04/18/20 05:50 Urine WBC None seen /HPF (0-5) 04/18/20 05:50 Ur Squamous Epith Cells Rare /HPF (NEGATIVE) 04/18/20 05:50 Amorphous Sediment Trace /HPF (NEGATIVE) 04/18/20 05:50 Urine Bacteria Negative /HPF (NEGATIVE) 04/18/20 05:50 Urine Mucus Few /HPF (NEGATIVE) 04/18/20 05:50 Ur Culture Indicated? No/not indicated 04/18/20 05:50 Tissue Pathology To follow 04/21/20 10:45 - Plan (1) Abdominal pain Status: Acute Qualifiers: Abdominal location: generalized Qualified Code(s): R10.84 - Generalized abdominal pain Plan: D5 1/2NS WITH 20MEQ KCL AT 150 ML/HR, PROTONIX 40M IV BID, PEPCID 20MG IV Q12H, ZOFRAN 4MG IV Q6H PRN, PHENERGAN 25MG IM Q6H PRN, DIFLUCAN 200MG IV DAILY, AND LEVAQUIN 750 MG IV DAILY (2) Gastric outlet obstruction Status: Acute (3) Prepyloric ulcer Status: Acute Qualifiers: Gastric ulcer chronicity: acute Qualified Code(s): K25.3 - Acute gastric ulcer without hemorrhage or perforation (4) Nausea & vomiting Status: Acute Qualifiers: Vomiting type: unspecified Vomiting Intractability: non-intractable Qualified Code(s): R11.2 - Nausea with vomiting, unspecified (5) Right lower lobe pulmonary infiltrate Status: Resolved
--- NOTE | 2020-04-24 11:46 | NM ---
HISTORYGASTRIC OUTLET OBSTRUCTION. PT. C/O SEVERE NAUSEA, VOMITING, BLOATING.STUDYNM GASTRIC EMPTYING STUDY, patient ingested 0.60 millicuries of technetium 99 M labeled sulfur colloid with eggs. Imaging of the stomach is performed with activity curve measured and reviewed.COMPARISONCT 04/17/2020FINDINGSGastric emptying half-life is 68.6 minutes. No gastroesophageal reflux is seen.IMPRESSIONGastric emptying appears within normal limits.Electronically signed by: Adithya Muñiz (Apr 24, 2020 11:46:23)
[2020-04-24 12:17] VITALS: BP 123/73
--- NOTE | 2020-04-24 15:18 | DR.PROGNOT ---
Hospital Progress Notes - Progress Note for Day of: Progress Note Date: 04/24/20 - Chief Complaint Chief Complaint: less abdominal pain . no nauseaor vomiting and tolerating clear and full liguid . had small BM today . gastric emptying study was reported as normal . lab work is WNL . - Past Medical Family Social History Past Med/Fam/Surg Hx: No changes since H&P Allergies: Allergies No Known Drug Allergies Allergy (Verified 04/16/20 16:29) - Review Of Systems ROS: No change since H&P - Vital Signs Vital Signs: Temperature 98.6 F Pulse Rate [Left Brachial] 76 Pulse Rate 79 Respiratory Rate 18 Blood Pressure [Right Arm] 123/73 Blood Pressure [Left Arm] 160/88 Blood Pressure 171/92 O2 Sat by Pulse Oximetry 99 - Physical Exam Oriented: Normal Eyes: Normal Ear: Normal Nose: Normal Throat: Normal Respiratory: Generalized, Diminished Cardiovascular: Normal : Normal GI:Auscultation: Normal GI:Palpation: Normal GI: Tenderness: Epigastric (soft ,flat abdomen with mild epigastric tenderness .BS+), Moderate Skin: Normal Musculoskeletal: Normal Psychiatric: Normal Mood Description: Calm Affect: Normal Speech Pattern: Clear, Appropriate - Laboratory and Diagnostics Result Diagrams: 04/24/20 05:35 04/24/20 05:35 Labs: Laboratory WBC 4.0 X10^3/uL (3.6-10.0) 04/24/20 05:35 RBC 3.65 X10^6/uL (3.5-5.4) 04/24/20 05:35 Hgb 11.8 g/dL (12.0-16.0) L 04/24/20 05:35 Hct 35.0 % (36.0-47.0) L 04/24/20 05:35 MCV 95.8 fL (80.0-100.0) 04/24/20 05:35 MCH 32.4 pg (27.0-34.0) 04/24/20 05:35 MCHC 33.8 g/dL (33.0-35.0) 04/24/20 05:35 RDW 13.4 % (11.6-16.5) 04/24/20 05:35 Plt Count 173 X10^3/uL (150.0-450.0) 04/24/20 05:35 Plt Count Comment Adequate (ADEQUATE) 04/21/20 05:20 MPV 8.3 fL (7.4-11.0) 04/24/20 05:35 Neut % (Auto) 50.2 % (42.0-75.0) 04/24/20 05:35 Lymph % (Auto) 36.4 % (21.0-51.0) 04/24/20 05:35 [place] % (Auto) 10.3 % (0.0-13.0) 04/24/20 05:35 Eos % (Auto) 2.2 % (0.9-2.9) 04/24/20 05:35 Baso % (Auto) 0.9 % (0.2-1.0) 04/24/20 05:35 Neut # (Auto) 2.0 x10^3/uL (2.2-4.8) L 04/24/20 05:35 Lymph # (Auto) 1.5 X10^3/uL (1.3-2.9) 04/24/20 05:35 [place] # (Auto) 0.4 x10^3/uL (0.3-0.8) 04/24/20 05:35 Eos # (Auto) 0.1 x10^3/uL (0.0-0.2) 04/24/20 05:35 Baso # (Auto) 0.0 X10^3/uL (0.0-0.1) 04/24/20 05:35 Absolute Nucleated RBC 0.0 /100WBC 04/24/20 05:35 Plt Morphology Comment Normal (NORMAL) 04/21/20 05:20 RBC Morphology Normal (NORMAL) 04/21/20 05:20 Sodium 140 mmol/L (136-145) 04/24/20 05:35 Corrected Sodium TNP 04/24/20 05:35 Potassium 4.4 mmol/L (3.5-5.1) 04/24/20 05:35 Chloride 106 mmol/L (98-107) 04/24/20 05:35 Carbon Dioxide 26.6 mmol/L (21-32) 04/24/20 05:35 BUN 1 mg/dL (7-18) L 04/24/20 05:35 Creatinine 0.69 mg/dL (0.55-1.02) 04/24/20 05:35 Est GFR (MDRD) Af Amer > 60 (>60) 04/24/20 05:35 Est GFR (MDRD) Non-Af > 60 (>60) 04/24/20 05:35 Glucose 99 mg/dL (65-99) 04/24/20 05:35 Calcium 8.9 mg/dL (8.5-10.1) 04/24/20 05:35 Corrected Calcium 10.0 mg/dL (8.5-10.1) 04/24/20 05:35 Magnesium 1.7 mg/dL (1.7-2.9) 04/21/20 05:55 Ferritin 42 ng/mL (8-252) 04/18/20 05:45 Total Bilirubin 0.30 mg/dL (0.2-1.0) 04/24/20 05:35 AST 17 Units/L (15-37) 04/24/20 05:35 ALT 21 Units/L (12-78) 04/24/20 05:35 Alkaline Phosphatase 96 Units/L (46-116) 04/24/20 05:35 C-Reactive Protein 2.10 mg/L (0-3.0) 04/18/20 05:45 Total Protein 5.5 g/dL (6.4-8.2) L 04/24/20 05:35 Albumin 2.6 g/dL (3.4-5.0) L 04/24/20 05:35 Globulin 2.9 g/dL (2.5-4.5) 04/24/20 05:35 Albumin/Globulin Ratio 0.9 Ratio (1.1-2.1) L 04/24/20 05:35 Amylase 39 Units/L (25-115) 04/18/20 05:45 Lipase 114 Units/L (73-393) 04/18/20 05:45 Carcinoembryonic Ag 5.7 ng/mL (0.0-3.0) H 04/20/20 05:15 Specimen Type Clean catch urine 04/18/20 05:50 Urine Color Yellow (YELLOW) 04/18/20 05:50 Urine Appearance Hazy (CLEAR) 04/18/20 05:50 Urine pH 6.0 (5.0 - 8.0) 04/18/20 05:50 Ur Specific Maxie 1.020 (1.000-1.030) 04/18/20 05:50 Urine Protein 1+ (NEGATIVE) 04/18/20 05:50 Urine Glucose (UA) Negative (NEGATIVE) 04/18/20 05:50 Urine Ketones 4+ (NEGATIVE) 04/18/20 05:50 Urine Occult Blood 4+ (NEGATIVE) 04/18/20 05:50 Urine Nitrite Negative (NEGATIVE) 04/18/20 05:50 Urine Bilirubin Negative (NEGATIVE) 04/18/20 05:50 Urine Urobilinogen 1+ (NORMAL) 04/18/20 05:50 Ur Leukocyte Esterase Negative (NEGATIVE) 04/18/20 05:50 Urine RBC 3-5 /HPF (0-3) A 04/18/20 05:50 Urine WBC None seen /HPF (0-5) 04/18/20 05:50 Ur Squamous Epith Cells Rare /HPF (NEGATIVE) 04/18/20 05:50 Amorphous Sediment Trace /HPF (NEGATIVE) 04/18/20 05:50 Urine Bacteria Negative /HPF (NEGATIVE) 04/18/20 05:50 Urine Mucus Few /HPF (NEGATIVE) 04/18/20 05:50 Ur Culture Indicated? No/not indicated 04/18/20 05:50 Tissue Pathology To follow 04/21/20 10:45 - Assessment and Plan 1: improving gastric outlet obstruction . multiple distal gastric ulcers with scaring . no bleeding . to keep on full liquid only . on oral Protonix 40 BID . carafate one gram TID . UGI on friday . f/u on 2019 - Problem Patient Problems: Patient Problems Abdominal pain (Acute) R10.9 Nausea & vomiting (Acute) R11.2 Gastric outlet obstruction (Acute) K31.1 Right lower lobe pulmonary infiltrate (Resolved) R91.8 Prepyloric ulcer (Acute) K25.9
== END 2020-04-24 15:30 | disposition home or self-care (01) | DRG 381 ==
LOC: MED/SURG 16:20 → ER 16:20 → OBSVTOIN 22:31 → MED/SURG 23:23
PROVIDERS: ADMIT Internal Medicine; ATTEND Internal Medicine